=== PATIENT | male | born 1950 | race Caucasian/White ===

== ENCOUNTER → 2016-11-08 | Outpatient (CLI) | payer OTHER ==
[~2016-11-08] MED LIST: ACET-1138 PO; ACET-1256 PO; ASPI81TA28 PO; BACL10TA PO; BUSP1TAB46 PO; CALC500C3 PO; CHOL100010 PO; CLB/200 PO; CRS20 PO; CYCL10TA6 PO; DULO60CA44 PO; GLC/500 PO; HMLIS SQ; IBUP-1050 PO; INSDGI SC; INSDGI SQ; IPRA0.06 NAE; LEVO50TA6 PO; LISI-725 PO; MELA1TAB5 PO; MELA5CAP PO; NAPR250T2 PO; OXYSR/10 PO; PREG150C PO; PREG200C PO; PRLSR20 PO; ROSU40TA PO; RXC5 PO; XRL10 PO
[2016-11-08 11:27] LABS: ALT/SGPT 24 U/L (12-78); BLOOD UREA NITROGEN 15 mg/dl (7-18); BUN/CREATININE RATIO 19.9 (10-20); CALCIUM 8.9 mg/dl (8.5-10.1); CARBON DIOXIDE 27 mmol/L (21-32); CHLORIDE 105 mmol/L (98-107); CHOLESTEROL 138 mg/dl (0-200); CREATININE 0.77 mg/dl (0.60-1.40); GLUCOSE 159 mg/dl (70-99); POTASSIUM 4.6 mmol/L (3.5-5.1); SODIUM 140 mmol/L (136-145)
[2016-11-08 11:30] LABS: ALKALINE PHOSPHATASE 99 U/L (45-117); AST/SGOT 18 U/L (15-37); CHOLESTEROL/HDL RATIO 2.9; HDL CHOLESTEROL 48 mg/dl; LDL CHOLESTEROL CALCULATED 63 mg/dl; TRIGLYCERIDES 133 mg/dl (0-150); VERY LOW DENSITY LIPOPROT CALC 27 mg/dl
[2016-11-08 11:56] LABS: ESTIMATED AVERAGE GLUCOSE 154 mg/dl; HA1C FLAG Normal (Normal)
== END | disposition home or self-care (01) ==
LOC: C.LAB 10:24
PROVIDERS: ATTEND Nurse Practitioner Adult Health
DX: I10 Essential (primary) hypertension (principal); E11.42 Type 2 diabetes mellitus with diabetic polyneuropathy; M48.06 Spinal stenosis, lumbar region; E78.5 Hyperlipidemia, unspecified; E03.9 Hypothyroidism, unspecified; E11.8 Type 2 diabetes mellitus with unspecified complications

== ENCOUNTER → 2016-11-09 | Outpatient (CLI) | payer OTHER ==
[2016-11-09 17:23] LABS: BENZODIAZEPINE, URINE NEG (NEG); COCAINE,URINE NEG (NEG); PHENCYCLIDINE, URINE NEG (NEG)
[2016-11-13 15:38] LABS: COD UR NEGATIVE NG/ML (CUTOFF=50); HYDROCOD UR NEGATIVE NG/ML (CUTOFF=50); HYDROMOR UR NEGATIVE NG/ML (CUTOFF=50); MORPHINE UR 1170 NG/ML (CUTOFF=50); NORHYDROCODONE CONF UR NEGATIVE NG/ML (CUTOFF=50); OXYMORPH UR NEGATIVE NG/ML (CUTOFF=50)
--- NOTE | 2016-11-15 07:43 | CODING QUERY MEDICAL NECESSITY ---
SUPPORTING DIAGNOSIS NEEDED A supporting diagnosis is required for the test/procedure performed on this patient in order for us to be reimbursed by the patient's insurance. Please provide a supporting diagnosis for the following test/procedure listed below next to the test name along with your signature. *If there is no additional diagnosis for this patient that would support the following test/procedure please document that below next to the test/procedure. Test(s)/Procedure(s) that require a supporting diagnosis: * URINE DRUG SCREEN DIAGNOSIS: * DOS: 11/09/16 Provider Signature: Date: Thank you Anabel Cleary Health Information Management Once completed, please kindly fax back to [phone] For questions please call [phone]
== END | disposition home or self-care (01) ==
LOC: C.LAB 15:57
PROVIDERS: ATTEND Family Medicine
DX: Z51.81 Encounter for therapeutic drug level monitoring (principal); Z79.899 Other long term (current) drug therapy

== ENCOUNTER → 2017-03-15 | Outpatient (CLI) | payer OTHER ==
[~2017-03-15] MED LIST changes: +NAPR1TAB48 PO; -NAPR250T2 PO
[2017-03-15 12:23] LABS: ESTIMATED AVERAGE GLUCOSE 177 mg/dl; HA1C FLAG Normal (Normal)
== END | disposition home or self-care (01) ==
LOC: C.LAB 10:55
PROVIDERS: ATTEND Nurse Practitioner Adult Health
DX: E11.49 Type 2 diabetes mellitus with other diabetic neurological complication (principal)

== ENCOUNTER 2017-03-23 08:28 | Observation (INO) | payer OTHER ==
[2017-03-15 12:08] LABS: BASO % 0.5 %; BASO ABS # 0.03 K/uL (0-0.2); COMPLETE YES; EOS % 1.5 %; IG% 0.3 %; LYMPH % 27.2 %; LYMPH ABS # 1.78 K/uL (1.2-3.4); MEAN CELL VOLUME 89.9 fL (80-100); MEAN CORPUSCULAR HEMOGLOBIN 30.8 pg (25-34); MEAN CORPUSCULAR HGB CONC 34.3 g/dl (32-36); MEAN PLATELET VOLUME 12.6 fL (7.4-10.4); MONO % 8.9 %; NEUT % 61.6 %; PLATELET COUNT 171 K/uL (130-400); RED BLOOD COUNT 4.67 M/uL (4.7-6.1); WHITE BLOOD COUNT 6.55 K/uL (4.8-10.8)
[2017-03-15 12:18] LABS: PARTIAL THROMBOPLASTIN RATIO 1.1; PROTHROMBIN TIME (PATIENT) 11.2 SECONDS (9.0-12.0)
[2017-03-15 12:21] LABS: URINE APPEARANCE CLEAR (CLEAR); URINE BILIRUBIN NEG (NEG); URINE COLOR DK YELLOW; URINE NITRITE NEG (NEG); URINE SPECIFIC GRAVITY 1.027 (1.000-1.030); UROBILINOGEN NEG (NEG)
[2017-03-15 12:29] LABS: MANUAL MICROSCOPIC REQUIRED? NO; REVIEW REQ? NO
[2017-03-15 12:37] LABS: BLOOD UREA NITROGEN 13 mg/dl (7-18); BUN/CREATININE RATIO 17.6 (10-20); CARBON DIOXIDE 27 mmol/L (21-32); CHLORIDE 107 mmol/L (98-107); CREATININE 0.75 mg/dl (0.60-1.40); GLUCOSE 109 mg/dl (70-99); SODIUM 143 mmol/L (136-145)
[2017-03-15 12:48] LABS: CALCIUM 8.7 mg/dl (8.5-10.1)
[2017-03-15 14:47] VITALS: BMI 41.0
--- NOTE | 2017-03-22 13:42 | History and Physical ---
History & Physical Date Mar 22, 2017. Chief Complaint Patellar instability right TKA History of Present Illness The patient is a 67 year old male with complaints of Past Medical/Surgical History Medical Problems: (1) Degenerative joint disease (DJD) of hip (2) Depressive Disorder Nec (3) Diab W Oth Spec Manifest, Type Ii Or Unspec Type, Not Uncntr (4) Esophageal Reflux (5) Heart Disease Nos (6) Hyperlipidemia Nec/Nos (7) Hypertension Nos (8) Mitral Valve Disorder (9) Pharyngitis Additional History Hepatic Disease: No Endocrine Disorder: Yes (Type I DM) Hypertension: No Other: Hyperlipidemia, Depression Allergies Coded Allergies: Iodinated Diagnostic Agents (Verified Allergy, Severe, ANAPHYLAXIS, ) Iodine (Verified Allergy, Severe, ANAPHYLAXIS, 03/15/17) HAS EATEN SHELLFISH IN RECENT PAST W/O PROBLEM Home Medications Scheduled Acetaminophen (Tylenol), 1,000 MG PO PRN Aspirin (Aspirin Ec), 81 MG PO QAM Baclofen (Lioresal), 20 MG PO BID Buspirone Hcl (Buspirone Hcl), 7.5 MG PO BID Calcium Carbonate (Tums), 2 TAB PO PRN Cyclobenzaprine Hcl (Flexeril), 10 MG PO TID Insulin Glargine (Lantus), 50 UNITS SC AMPM Insulin Human Lispro (Humalog Kwikpen), UNITS SQ TIDM Levothyroxine Sodium (Levothyroxine Sodium), 1 TAB PO QAM Lisinopril (Zestril), 20 MG PO QAM Melatonin (Kp Melatonin), 1 TAB PO HS Metformin Hcl (Glucophage), 1,000 MG PO BID Omeprazole (Prilosec), 20 MG PO QAM Pregabalin (Lyrica), 150 MG PO TID Rosuvastatin Calcium (Crestor *), 40 MG PO QAM Physical Examination Skin: warm/dry Eyes: normal inspection, EOMI ENT: normal ENT inspection Head: normocephalic Neck: supple, no adenopathy Respiratory/Chest: lungs clear, normal breath sounds Cardiovascular: regular rate, rhythm Abdomen / GI: normal bowel sounds Extremities: normal inspection (Right knee incision well healed, probable defect medial retinaculum) Neurologic/Psych: no motor/sensory deficits Diagnosis Right knee patellar instability, 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
[2017-03-23] VITALS (10 sets, daily range): BP systolic 120–153; BP diastolic 70–85; PULSE 70–87; TEMP 36.7–37.1; O2SAT 92–96; Ht 185.4 cm; Wt 141.8 kg
[~2017-03-23] VITALS: Ht 185.4 cm; Wt 141.8 kg
[~2017-03-23 08:28] MED LIST changes: -ACET-1138 PO; -BACL10TA PO; +BUPIVACAINE 0.25% 30 ML VIAL ONE; +BUPIVACAINE 0.5 % 5 MG/1 ML PF 10ML VIAL ONE; -BUSP1TAB46 PO; -CALC500C3 PO; +CEFAZOLIN 3000 MG/65 ML D5W IV SCH; -CHOL100010 PO; -CLB/200 PO; -DULO60CA44 PO; -GLC/500 PO; -IBUP-1050 PO; -INSDGI SQ; -IPRA0.06 NAE; +LACTATED RINGER'S 1000ML 1,000 ML IV SCH; -LEVO50TA6 PO; -LISI-725 PO; -MELA5CAP PO; -NAPR1TAB48 PO; -OXYSR/10 PO; -PREG200C PO; -PRLSR20 PO; -ROSU40TA PO; -RXC5 PO; -XRL10 PO
--- NOTE | 2017-03-23 09:46 | History & Physical Bridge Note ---
H&P Re-Evaluation Bridge Note: I have examined the patient, reviewed the History & Physical and in the interval since the performance of the History & Physical I have noted the following changes of clinical significance: No changes noted
[2017-03-23] MEDS ORDERED: LIDOCAINE HCL 2% 2 ML VIAL (20MG/ML) ONE (09:57)
[2017-03-23] MEDS ORDERED: PROPOFOL IV EMULSION 10 MG/ML 20 ML VIAL IV ONE (09:57)
[2017-03-23] MEDS ORDERED: FENTANYL CITRATE INJ 50 MCG/1 ML 2 ML VIAL ONE (09:58)
[2017-03-23] MEDS ORDERED: MIDAZOLAM HCL 1 MG/ML 2ML VIAL ONE ×3 (09:58→12:07)
[2017-03-23] MEDS ORDERED: BACITRACIN 50000 UNIT VIAL ONE (11:08)
[2017-03-23] MEDS ORDERED: POVIDONE-IODINE OP SOLN 30 ML BTL ONE (11:44)
[2017-03-23] MEDS ORDERED: KETAMINE HCL INJ 50 MG/ML 10 ML VIAL ONE (11:54)
[2017-03-23] MEDS ORDERED: HYDROmorphone INJ 2 MG/ML SYR/VIAL IV PRN (12:00)
[2017-03-23] MEDS ORDERED: ONDANSETRON INJ 2 MG/ML 2 ML VIAL IV PRN ×2 (12:00→13:00)
[2017-03-23] MEDS ORDERED: ATROPINE SULFATE 0.1 MG/ML 5ML SYR IV PRN (12:00)
[2017-03-23] MEDS ORDERED: KETOROLAC TROMETHAMINE 30 MG/ML VIAL IV. PRN (12:00)
[2017-03-23] MEDS ORDERED: PHENYLEPHRINE 100MCG/ML 5ML SYR IV PRN (12:00)
[2017-03-23] MEDS ORDERED: EpHEDrine SULFATE INJ 50 MG/ML AMP IV PRN (12:00)
--- NOTE | 2017-03-23 12:40 | [facility] Operative Report ---
Operative Report Operative Date Mar 23, 2017. Pre-Operative Diagnosis Recurrent Instability, Patella Post-Operative Diagnosis same Procedure(s) Performed Patient's right knee was prepped and draped in the usual sterile manner. Limb was exsanguinated with an Esmarch bandage and the drug was inflated to 300 mmHg. There is minimal incision was reopened some tenderness or shortness of carcinoma status. The medial retinaculum was not ruptured but was patulous and this rendered the patella unstable. On passive flexion the patella tracked normally. The medial retinaculum was reopened And taken to ensure a good tendinous edge on both sides incision. All components were intact. The patella was intact. A lateral release carried out using electrocautery. The knee was thoroughly irrigated and the passive pants over vest fashion the VMO was advanced to tighten the medial retinaculum. The wound was again irrigated and closed using 0 Dexon and a sip strip sterile dressing of Adaptic 44's Stoler roll the lengthenings with medial and lateral plaster slabs applied. The patient told procedure well. Mr. Walton was essential throughout components of the case including positioning prepping draping program support assistant wound closure and dressings application. Surgeon Dr. Rubens Macias Web Publisher Surgeon(s) Gilmer Walton PA-C Estimated Blood Loss 10ml Findings Medial retinacular laxity Specimens None per surgeon I attest to the content of the Intraoperative Record and any orders documented therein. Any exceptions are noted below.
--- NOTE | 2017-03-23 12:42 | [facility] Operative Report ---
Operative Report Operative Date Mar 23, 2017. Pre-Operative Diagnosis Recurrent Instability, Patella Post-Operative Diagnosis same Surgeon Dr. Rubens Macias Engineer Soils Surgeon(s) Gilmer Walton PA-C Estimated Blood Loss 10ml Findings medial retinacular laxity Specimens None per surgeon I attest to the content of the Intraoperative Record and any orders documented therein. Any exceptions are noted below.
[2017-03-23] MEDS ORDERED: PHARMACY GLYCEMIC MGMT CONSULT PRN (12:59)
[2017-03-23] MEDS ORDERED: MoRPHine SULFATE 2 MG/ML CARP IV PRN (13:00)
[2017-03-23] MEDS ORDERED: MAGNESIUM HYDROXIDE SUSP 30 ML UDC PO PRN (13:00)
[2017-03-23] MEDS ORDERED: OXYCODONE HCL IR 5 MG TAB (IMMEDIATE RELEASE) PO PRN (13:00)
[2017-03-23] MEDS ORDERED: ALUMINUM/MAGNESIUM/SIMETH (MAALOX MAX) 30 ML UDC PO PRN (13:00)
[2017-03-23] MEDS ORDERED: METOCLOPRAMIDE HCL INJ 5 MG/ML 2 ML VIAL IV PRN (13:00)
[2017-03-23] MEDS ORDERED: ZOLPIDEM TARTRATE 5 MG TAB PO PRN (13:00)
[2017-03-23] MEDS ORDERED: BISACODYL 10 MG SUPP PR PRN (13:00)
--- NOTE | 2017-03-23 13:44 | Anesthesiology Progress Note ---
Anesthesia Post Op Note Date & Time Mar 23, 2017 at 13:43 Vital Signs Pain Intensity: 0 Vital Signs Past 12 Hours Date Time Temp Pulse Resp B/P (MAP) Pulse Ox O2 Delivery O2 Flow Rate FiO2 03/23/17 13:35 37.2 73 16 134/72 98 Nasal Cannula 2 03/23/17 13:25 70 13 136/82 100 Nasal Cannula 2 03/23/17 13:15 71 14 134/76 100 Nasal Cannula 2 03/23/17 13:05 71 14 137/73 100 Nasal Cannula 2 03/23/17 12:55 36.0 75 16 132/74 95 Nasal Cannula 2 03/23/17 09:21 36.9 74 20 132/76 93 Room Air Notes Mental Status: alert / awake / arousable, participated in evaluation Pt Amnestic to Procedure: Yes Nausea / Vomiting: adequately controlled Pain: adequately controlled Airway Patency, RR, SpO2: stable & adequate BP & HR: stable & adequate Hydration State: stable & adequate Neuraxial Anesthesia: was administered, sensory block is resolving Anesthetic Complications: no major complications apparent
[2017-03-23] MEDS ORDERED: MoRPHine SULFATE 10 MG/ML CARP/VIAL IV PRN (13:45)
[2017-03-23] MEDS ORDERED: MoRPHine SULFATE 4 MG/ML 1 ML CARP\\VIAL IV PRN (13:45)
--- NOTE | 2017-03-23 13:59 | Pharmacy Progress Note ---
Glycemic Control Intl Consult Date of Service Mar 23, 2017. Scope Glycemic Pharmacist consulted by Yahir Walton on 03/23/17 for glycemic control and to write orders per [facility] inpatient glycemic control protocol Objective Weight (Kilograms): 141.82 Accuchecks BSG (last 24hrs): Test 03/23/17 08:42 03/23/17 13:10 Bedside Glucose 148 mg/dl (70-99) 121 mg/dl (70-99) Recent Pertinent Medications Outpatient Anti-diabetic Regimen: * Lantus 50 units AMPM, Humalog 90-125 units/day per SS, Metformin 1gm BIDM * A1c = 7.8 % from 03/15/17 Risk Factors for Insulin Resistance: * Infection: Ancef periop prophylaxis * IVF:NS + KCl 10 mEq at 100 ml/hr * Recent Surgery: POD0, R TKA * Diet: DM1, will change to DM2 Assessment & Plan ASSESSMENT: * ADA & AACE recommend a goal blood sugar range 140-180 mg/dl for the majority of critically ill & non-critically ill patients. However, more stringent targets may be selected in individual cases. * 67 yo male admitted s/p R TKA done today by Dr. Macias. * Most recent A1c from last week indicates marginal control of BSGs as an outpatient, however, definitely room for improvement. * Pt receives significant doses of Lantus and Humalog as an outpatient with TDD ranging from 190 - 225 units per day. Pt also takes Metformin which will be placed on hold initially; consider resuming Metformin in 1-2 days prior to discharge. * Due to changing po intake among other differences in the acute setting will decrease basal dose by 30% initially then titrate based off BSGs thereafter. * Will consider both weight based dosing and home dosing to determine Novolog parameters. Add an overnight check to help estimate pt's insulin needs and correct potential hyperglycemia, particularly if Lantus is underdosed. * Goal is to maintain tight control of BSGs post-operatively, especially during the first 24- 48 hours. Maintaining BSGs < 180 mg/dl during this time has been shown to improve healing time and decrease risk of infection. PLAN FOR INPATIENT GLYCEMIC CONTROL: * Set Lantus to 35 units SQ BID * Novolog ACHS + 02 * Set correction factor to 12 mg/dl/unit * Set carb ratio to 1 unit per 4 grams CHO consumed * Set goal range to Low 110 mg/dL - High 150 mg/dL * Hold metformin * Please note that the plan above was derived based on current level of insulin resistance and hospital stress. These recommendations are appropriate for inpatient admission only. Plan of care upon discharge will need to be reassessed to avoid potential outpatient hypo/hyperglycemia. Thank you.
[2017-03-23] MEDS ORDERED: IV FLUIDS COMPLETED PRN (14:00)
[2017-03-23] MEDS ORDERED: GLUCOSE 40% GEL 15 GM TUBE PO PRN (15:15)
[2017-03-23] MEDS ORDERED: DEXTROSE 50% 50 ML SYR IV PRN (15:15)
[2017-03-23] MEDS ORDERED: GLUCOSE 10 TABS/TUBE PO PRN (15:15)
[2017-03-23] MEDS ORDERED: GLUCAGON FOR INJ 1 MG VIAL SQ PRN (15:15)
[2017-03-23] MEDS: POTASSIUM CHLORIDE INJ 10 MEQ in SODIUM CHLORIDE 0.9% 1000ML 1,000 ML IV SCH (15:47)
[2017-03-23] MEDS: ACETAMINOPHEN 500 MG TAB PO SCH ×2 (15:48→22:28)
[2017-03-23] MEDS: KETOROLAC TROMETHAMINE 15 MG/ML VIAL IV. SCH ×2 (15:50→22:28)
[2017-03-23] MEDS: FERROUS GLUCONATE 324 MG TAB PO SCH (17:47)
[2017-03-23] MEDS: INSULIN ASPART 100 UNITS/ML 3 ML PEN SC SCH ×2 (17:52→21:11)
[2017-03-23] MEDS: CEFAZOLIN IV 3,000 MG in DEXTROSE 5% 50ML 50 ML IV SCH (21:07)
[2017-03-23] MEDS: INSULIN GLARGINE SOLOSTAR 100 UNITS/ML 3 ML PEN SC SCH (21:10)
[2017-03-24] MEDS: POTASSIUM CHLORIDE INJ 10 MEQ in SODIUM CHLORIDE 0.9% 1000ML 1,000 ML IV SCH (01:37)
[2017-03-24] MEDS ORDERED: INSULIN ASPART 100 UNITS/ML 3 ML PEN SC ONE (02:00)
[2017-03-24 03:32] VITALS: BP 137/68; PULSE 81; TEMP 36.4; O2SAT 95
[2017-03-24] MEDS: KETOROLAC TROMETHAMINE 15 MG/ML VIAL IV. SCH ×2 (04:13→10:57)
[2017-03-24] MEDS: CEFAZOLIN IV 3,000 MG in DEXTROSE 5% 50ML 50 ML IV SCH (04:13)
[2017-03-24 05:59] LABS: HEMATOCRIT 37.5 % (42-52); MEAN CELL VOLUME 89.5 fL (80-100); MEAN CORPUSCULAR HEMOGLOBIN 30.5 pg (25-34); MEAN CORPUSCULAR HGB CONC 34.1 g/dl (32-36); MEAN PLATELET VOLUME 12.1 fL (7.4-10.4); PLATELET COUNT 157 K/uL (130-400); RED BLOOD COUNT 4.19 M/uL (4.7-6.1); WHITE BLOOD COUNT 10.72 K/uL (4.8-10.8)
[2017-03-24 06:30] LABS: BUN/CREATININE RATIO 19.3 (10-20); CALCIUM 8.7 mg/dl (8.5-10.1); CREATININE 1.1 mg/dl (0.60-1.40)
[2017-03-24 07:05] VITALS: BP 155/76; PULSE 79; TEMP 37; O2SAT 96
--- NOTE | 2017-03-24 07:53 | Orthopedic Progress Note ---
Orthopedic Progress Note Date of Service Mar 24, 2017. Subjective Post OP Day: 1 Reports: feeling well Objective N/V intact, splint C/D/I Date Time Temp Pulse Resp B/P (MAP) Pulse Ox O2 Delivery O2 Flow Rate FiO2 03/24/17 07:05 37.0 79 16 155/76 (102) 96 Room Air 03/24/17 03:32 36.4 81 16 137/68 (91) 95 Room Air 03/23/17 22:49 37.0 87 16 138/72 (94) 93 Room Air 03/23/17 19:30 37.1 87 16 153/85 (107) 94 Room Air 03/23/17 19:26 96 Room Air 03/23/17 17:29 36.9 78 16 138/78 (98) 95 2.0 03/23/17 16:40 36.7 80 17 131/73 (92) 95 Nasal Cannula 2.0 03/23/17 15:32 37.1 72 17 120/75 (90) 95 Nasal Cannula 3.0 03/23/17 15:20 94 Nasal Cannula 2.0 03/23/17 15:06 37.0 70 16 120/73 (89) 92 Nasal Cannula 2.0 03/23/17 14:40 96 Nasal Cannula 2.0 03/23/17 14:40 37.0 78 15 131/70 (90) 96 Nasal Cannula 2.0 03/23/17 14:15 74 12 128/83 96 Nasal Cannula 2 03/23/17 14:00 75 20 132/77 97 Nasal Cannula 2 03/23/17 13:45 74 15 123/74 97 Nasal Cannula 2 03/23/17 13:35 37.2 73 16 134/72 98 Nasal Cannula 2 03/23/17 13:25 70 13 136/82 100 Nasal Cannula 2 03/23/17 13:15 71 14 134/76 100 Nasal Cannula 2 03/23/17 13:05 71 14 137/73 100 Nasal Cannula 2 03/23/17 12:55 36.0 75 16 132/74 95 Nasal Cannula 2 03/23/17 09:21 36.9 74 20 132/76 93 Room Air Laboratory Results 24 Hours: Test 03/24/17 05:41 Hematocrit 37.5 % Hemoglobin 12.8 g/dL Assessment & Plan Assessment: 67 yo male stable POD #1 s/p right TKA medial retinacular repair Plan: 1. Med management 2. DVT prophylaxis- ASA, SCDs 3. PT/OT 4. D/C planning- home
[2017-03-24] MEDS ORDERED: RXC5 PO (07:57)
[2017-03-24] MEDS ORDERED: ASPI81TA28 PO (07:57)
--- NOTE | 2017-03-24 08:00 | Discharge Instructions ---
Discharge Instructions Date of Service Mar 24, 2017. Admission Reason for Admission: Presence Of Right Artifical Knee Joint Discharge Discharge Diagnosis / Problem: Right knee patellar instability Discharge Goals Goal(s): Decrease discomfort, Improve function Activity Recommendations Activity Limitations: as noted below Weightbearing Status: Right weightbearing (as tolerated) . Instructions / Follow-Up Instructions / Follow-Up Maintain splint until follow-up with MD. Frequent ice and elevation. Move ankle/foot frequently. Weightbearing as tolerated Current Hospital Diet Patient's current hospital diet: Diabetes Type 2 Diet Discharge Diet Recommended Diet: Diabetes Type 2 Diet Procedures Procedures Performed: Right Knee Medial Retinacular Repair, Lateral Release, DMO Advancement Pending Studies Studies pending at discharge: no Laboratory Results Hemoglobin A1c Test 03/15/17 11:13 Range/Units Estimated Average Glucose 177 mg/dl Hemoglobin A1c 7.8 H 4.5-5.6 % Medical Emergencies . Who to Call and When: Medical Emergencies: If at any time you feel your situation is an emergency, please call 911 immediately. . Non-Emergent Contact Non-Emergency issues call your: Surgeon Call Non-Emergent contact if: temperature is above 101.5, your pain is not controlled, wound has increased drainage, wound has increased redness . "Provider Documentation" section prepared by Gilmer Walton PA-C. . VTE Core Measure Inpt VTE Proph given/why not?: Other Anticoagulation (ASA 81mg bid), T.E.D. Stockings, SCD's [place] Drug Monitoring Program Search Results: patient reviewed within database, no issues identified
[2017-03-24 08:08] VITALS: BP 155/76; PULSE 79; TEMP 37; O2SAT 96
[2017-03-24] MEDS ORDERED: PANTOprazole SOD 40 MG TAB PO SCH (09:00)
[2017-03-24] MEDS ORDERED: ASPIRIN 325 MG ECTAB PO SCH (09:00)
[2017-03-24] MEDS ORDERED: MULTIVITAMIN TAB PO SCH (09:00)
[2017-03-24] MEDS: FERROUS GLUCONATE 324 MG TAB PO SCH (09:14)
[2017-03-24] MEDS: ACETAMINOPHEN 500 MG TAB PO SCH (09:14)
[2017-03-24] MEDS: INSULIN ASPART 100 UNITS/ML 3 ML PEN SC SCH (09:18)
[2017-03-24] MEDS: INSULIN GLARGINE SOLOSTAR 100 UNITS/ML 3 ML PEN SC SCH (09:19)
[2017-03-24 10:51] VITALS: BP 153/74
[2017-03-24 11:31] VITALS: BP 174/80; PULSE 84; O2SAT 97
--- NOTE | 2017-04-05 08:54 | Discharge Summary ---
Orthopedic Discharge Summary Admission Date/Reason Mar 23, 2017 at 09:43 Presence Of Right Artifical Knee Joint. Discharge Date/Disposition Mar 24, 2017 Home Diagnosis Principal Diagnosis: Right total knee patellar instability Procedure(s) Performed Right total knee medial retinacular repair Medication Reconciliation New Medications: Oxycodone HCl (Oxycodone HCl) 5 Mg Tab 5-10 MG PO Q4-6 PRN for Pain, #60 TAB Changed Medications: Aspirin (Aspirin Ec) 81 Mg Tab 81 MG PO BID for 30 Days (Changed from: QAM) Change to twice daily Continued Medications: Acetaminophen (Tylenol) 500 Mg Tab 1000 MG PO PRN, TAB Baclofen (Lioresal) 10 Mg Tab 20 MG PO BID, TAB Buspirone Hcl (Buspirone Hcl) 7.5 Mg Tab 7.5 MG PO BID Calcium Carbonate (Tums) 500 Mg Chew 2 TAB PO PRN Cyclobenzaprine Hcl (Flexeril) 10 Mg Tab 10 MG PO TID, TAB Insulin Glargine (Lantus) Vial 50 UNITS SC AMPM, VIAL Insulin Human Lispro (Humalog Kwikpen) 100 Units/Ml Inj UNITS SQ TIDM TID PER SLIDING SCALE PER PT. RANGE 90-125 UNITS PER DAY Levothyroxine Sodium (Levothyroxine Sodium) 50 Mcg Tab 1 TAB PO QAM for 90 Days, #90 TAB 3 Refills Lisinopril (Zestril) 20 Mg Tab 20 MG PO QAM, 0 Refills Melatonin (Kp Melatonin) 3 Mg Tab 1 TAB PO HS for 30 Days, #30 TAB Metformin Hcl (Glucophage) 500 Mg Tab 1000 MG PO BID, TAB Omeprazole (Prilosec) 20 Mg Capcr 20 MG PO QAM Pregabalin (Lyrica) 150 Mg Cap 150 MG PO TID, CAP Rosuvastatin Calcium (Crestor *) 40 Mg Tab 40 MG PO QAM Admission Physical Exam As per Admitting History & Physical. Hospital Course Pt underwent right TKA medial retinacular repair without complication. He tolerated procedure well and was discharged to recovery room. post-operative pain well controlled. He was started on Aspirin for DVT prophylaxis. He also used SCD's for additional prophylaxis. His splint/dressing will remain in place until follow-up appt with MD. He was discharged home on POD #1 and will follow-up with MD in 10-14 days Discharge Instructions Please refer to the electronic Patient Visit Report (Discharge Instructions) for additional information.
[2017-06-01] MEDS ORDERED: LISI-725 PO (07:27)
[2017-06-01] MEDS ORDERED: PRLSR20 PO (07:53)
[2017-06-01] MEDS ORDERED: GLC/500 PO (10:02)
[2017-06-01] MEDS ORDERED: BACL10TA PO (11:02)
[2017-06-01] MEDS ORDERED: LEVO50TA6 PO (11:04)
[2017-06-01] MEDS ORDERED: BUSP1TAB46 PO (11:36)
[2017-06-01] MEDS ORDERED: CALC500C3 PO (15:14)
== END 2017-03-24 11:35 | disposition home or self-care (01) ==
LOC: C.ACU 08:28 → C.3E 09:43 → INTOOBSV 09:43 → ENRESERV 14:15 → CANBEDREQ 14:54
DX: T84.022A Instability of internal right knee prosthesis, initial encounter (principal); Y83.1 Surgical operation with implant of artificial internal device as the cause of abnormal reaction of the patient, or of later complication, without mention of misadventure at the time of the procedure; I10 Essential (primary) hypertension; E11.9 Type 2 diabetes mellitus without complications; M16.10 Unilateral primary osteoarthritis, unspecified hip; F32.9 Major depressive disorder, single episode, unspecified; E66.01 Morbid (severe) obesity due to excess calories; Z68.41 Body mass index [BMI] 40.0-44.9, adult; K21.9 Gastro-esophageal reflux disease without esophagitis; Z79.4 Long term (current) use of insulin; Z79.82 Long term (current) use of aspirin

== ENCOUNTER 2017-06-01 16:14 | Observation (INO) | payer OTHER ==
[~2017-06-01] VITALS: Ht 185.4 cm; Wt 145.8 kg
[~2017-06-01 16:14] MED LIST changes: +BACL10TA PO; -BUPIVACAINE 0.25% 30 ML VIAL ONE; -BUPIVACAINE 0.5 % 5 MG/1 ML PF 10ML VIAL ONE; +BUSP1TAB46 PO; +CALC500C3 PO; -CEFAZOLIN 3000 MG/65 ML D5W IV SCH; +GLC/500 PO; -LACTATED RINGER'S 1000ML 1,000 ML IV SCH; +LEVO50TA6 PO; +LISI-725 PO; +PRLSR20 PO; +RXC5 PO
[2017-06-01] MEDS ORDERED: SODIUM CHLORIDE 0.9% 1000ML 1,000 ML IV SCH (16:23)
[2017-06-01 16:43] LABS: BASO % 0.5 %; BASO ABS # 0.03 K/uL (0-0.2); COMPLETE YES; EOS % 2.7 %; HEMATOCRIT 41.3 % (42-52); IG% 0.2 %; LYMPH % 33.2 %; MEAN CORPUSCULAR HEMOGLOBIN 29.7 pg (25-34); MEAN CORPUSCULAR HGB CONC 33.4 g/dl (32-36); MEAN PLATELET VOLUME 12.4 fL (7.4-10.4); MONO % 9.3 %; NEUT % 54.1 %; PLATELET COUNT 148 K/uL (130-400); RED BLOOD COUNT 4.64 M/uL (4.7-6.1); WHITE BLOOD COUNT 6.33 K/uL (4.8-10.8)
[2017-06-01 16:59] LABS: BLOOD UREA NITROGEN 20 mg/dl (7-18); CALCIUM 9.2 mg/dl (8.5-10.1); CARBON DIOXIDE 27 mmol/L (21-32); CHLORIDE 108 mmol/L (98-107); CREATININE 0.83 mg/dl (0.60-1.40); GLUCOSE 124 mg/dl (70-99); POTASSIUM 4.1 mmol/L (3.5-5.1); SODIUM 141 mmol/L (136-145)
[2017-06-01 17:02] LABS: PARTIAL THROMBOPLASTIN RATIO 1.1; PROTHROMBIN TIME (PATIENT) 10.9 SECONDS (9.0-12.0)
[2017-06-01 17:04] LABS: CKMB/CK RATIO 0.7 (0-3.0)
--- NOTE | 2017-06-01 17:17 | DIAGNOSTIC IMAGING REPORT ---
CT OF THE HEAD WITHOUT CONTRAST CLINICAL HISTORY: Stroke symptoms. Left leg weakness. Fall. COMPARISON STUDY: Head CT February 05, 2014. CT DOSE: 823.94 mGycm TECHNIQUE: Helical axial images of the head were obtained without IV contrast. Automated exposure control was utilized for the study. A dose lowering technique was utilized adhering to the principles of ALARA. FINDINGS: No acute intracranial hemorrhage, midline shift or mass effect is present. Ventricular system is stable. Basilar cisterns are patent. There are no extra-axial collections. Arzola-white differentiation is maintained. There are no findings to suggest acute dural sinus thrombosis or acute territorial infarct. There is no calvarial fracture. Probable left maxillary sinus mucous retention cyst is partially imaged. IMPRESSION: No acute intracranial findings. Electronically signed by: Boris Ford M.D. 06/01/2017 5:15 PM Dictated Date/Time: 06/01/2017 5:08 PM
--- NOTE | 2017-06-01 17:20 | DIAGNOSTIC IMAGING REPORT ---
CHEST ONE VIEW PORTABLE CLINICAL HISTORY: Stroke symptoms. COMPARISON STUDY: Chest radiograph November 25, 2015. FINDINGS: Lung volumes are normal. No pneumothorax or pleural effusion is present. There is no evidence of pulmonary edema. Cardiomediastinal silhouette is stable. IMPRESSION: No acute cardiopulmonary findings. Electronically signed by: Boris Ford M.D. 06/01/2017 5:19 PM Dictated Date/Time: 06/01/2017 5:17 PM
[2017-06-01] MEDS ORDERED: NAPR250T2 PO (17:46)
[2017-06-01] MEDS ORDERED: MELA5CAP PO (17:46)
[2017-06-01] MEDS ORDERED: IBUP-1050 PO (17:46)
[2017-06-01] MEDS ORDERED: CYCL10TA6 PO (17:46)
[2017-06-01] MEDS ORDERED: INSDGI SQ (17:46)
[2017-06-01] MEDS ORDERED: ROSU40TA PO (17:46)
[2017-06-01] MEDS ORDERED: ASPI81TA28 PO (17:46)
[2017-06-01] MEDS ORDERED: PREG200C PO (17:46)
[2017-06-01] MEDS ORDERED: ASPIRIN 81 MG CHEW PO STA (18:45)
--- NOTE | 2017-06-01 19:42 | History and Physical ---
History & Physical Date & Time of Service: Jun 01, 2017 at 19:42 Chief Complaint: Fall/ Head Pain Primary Care Physician: Adi Osborne III, CRNP History of Present Illness Source: patient, hospital records The patient is a 67-year-old male who presents to the emergency department by EMS after reporting that his left leg gave way as he was stepping onto a bus earlier this evening. The bus cleaner called EMS and police escorted the patient to the hospital. The patient denies any neurologic symptoms as far as lightheadedness, dizziness, headache, confusion, memory loss, numbness or tingling in arms or legs, low back pain.. He reports that his left leg just gave way. He did undergo patellar repair surgery in February after a fall. Past Medical/Surgical History Medical Problems: (1) Depressive Disorder Nec Status: Chronic (2) Diab W Oth Spec Manifest, Type Ii Or Unspec Type, Not Uncntr Status: Chronic (3) Esophageal Reflux Status: Chronic (4) Heart Disease Nos Status: Chronic (5) Hyperlipidemia Nec/Nos Status: Chronic (6) Hypertension Nos Status: Chronic (7) Mitral Valve Disorder Status: Chronic Family History Patient reports no known family medical history. Social History Smoking Status: Former Smoker Drug Use: none Marital Status: single Housing status: lives alone Occupational Status: employed, retired Immunizations History of Influenza Vaccine: N/A History of Tetanus Vaccine?: Yes Tetanus Immunization Date: Apr 13, 1995 History of Pneumococcal: No History of Hepatitis B Vaccine: No Multi-Drug Resistant Organisms History of MDRO: No Allergies Coded Allergies: Iodinated Diagnostic Agents (Verified Allergy, Severe, ANAPHYLAXIS, ) Iodine (Verified Allergy, Severe, ANAPHYLAXIS, 03/23/17) HAS EATEN SHELLFISH IN RECENT PAST W/O PROBLEM Home Medications Scheduled Aspirin (Aspirin Ec), 81 MG PO DAILY Baclofen (Lioresal), 20 MG PO BID Buspirone Hcl (Buspirone Hcl), 7.5 MG PO BID Calcium Carbonate (Tums), 2 TAB PO PRN Cyclobenzaprine Hcl (Flexeril), 10 MG PO BID Insulin Glargine (Lantus), 46 UNITS SQ AMPM Insulin Human Lispro (Humalog Kwikpen), UNITS SQ TIDM Levothyroxine Sodium (Levothyroxine Sodium), 1 TAB PO QAM Lisinopril (Zestril), 20 MG PO QAM Melatonin (Melatonin), 5 MG PO HS Metformin Hcl (Glucophage), 1,000 MG PO BID Naproxen (Naprosyn), 1 TAB PO Q12 Omeprazole (Prilosec), 20 MG PO QAM Pregabalin (Lyrica), 200 MG PO TID Rosuvastatin Calcium (Crestor), 40 MG PO DAILY Scheduled PRN Ibuprofen (Advil), 400 MG PO Q6 PRN for Headache or Pain Review of Systems The patient denies chest pain, palpitations, shortness of breath, cough, lower extremity swelling, vision change, hearing change, sore throat, fevers, chills, sweats, weight change, fatigue, nausea, vomiting, diarrhea or constipation, abdominal pain, pelvic pain, blood in urine or stool, dysuria, urinary frequency or urgency, lightheadedness, dizziness, headache, memory loss, rash, abnormal bruising or bleeding, persistent focal weakness, numbness or tingling in arms or legs, generalized arthralgias or myalgias, back or neck pain, night sweats, or allergy symptoms. The review of systems is otherwise negative other than for that already noted above, and at least 10 systems have been reviewed. Physical Exam Vital Signs Date Time Temp Pulse Resp B/P (MAP) Pulse Ox O2 Delivery O2 Flow Rate FiO2 06/01/17 18:51 76 156/80 97 Room Air 06/01/17 17:23 72 20 121/77 98 Room Air 06/01/17 16:37 95 Room Air 06/01/17 16:21 36.7 87 20 151/88 95 Room Air The patient is awake, well-developed and adequately nourished, alert and oriented 3, normocephalic and atraumatic, lying in bed and in no acute distress. HEENT--PERRL, EOMI, mucous membranes and oropharynx normal. Chronic slight facial asymmetry persistent with less facial tone on left, Neck--supple, no JVD or bruits, thyroid normal, trachea midline, no adenopathy. Heart--normal S1 and S2, no extra beats, no murmurs, rubs or gallops. Lungs--clear bilaterally with good air movement, no respiratory distress, no accessory muscle use. Abdomen--normal bowel sounds and soft, nontender and nondistended, no hernias or masses, no organomegaly and morbidly obese. Extremities--no cyanosis, clubbing or edema. There are good distal pulses b/l. Dermatologic--normal skin turgor, normal color, warm and dry, no abnormal lymph nodes, no rash. Neurologic--cranial nerves II through XII grossly intact, motor and sensory examination normal. Rheumatologic--normal range of motion, nontender, muscles and joints. Psychiatric--normal affect. Diagnostics Laboratory Results Results Past 24 Hours Test 06/01/17 16:29 06/01/17 16:31 Range/Units Bedside Glucose 127 70-99 mg/dl White Blood Count 6.33 4.8-10.8 K/uL Red Blood Count 4.64 4.7-6.1 M/uL Hemoglobin 13.8 14.0-18.0 g/dL Hematocrit 41.3 42-52 % Mean Corpuscular Volume 89.0 80-100 fL Mean Corpuscular Hemoglobin 29.7 25-34 pg Mean Corpuscular Hemoglobin Concent 33.4 32-36 g/dl Platelet Count 148 130-400 K/uL Mean Platelet Volume 12.4 7.4-10.4 fL Neutrophils (%) (Auto) 54.1 % Lymphocytes (%) (Auto) 33.2 % Monocytes (%) (Auto) 9.3 % Eosinophils (%) (Auto) 2.7 % Basophils (%) (Auto) 0.5 % Neutrophils # (Auto) 3.43 1.4-6.5 K/uL Lymphocytes # (Auto) 2.10 1.2-3.4 K/uL Monocytes # (Auto) 0.59 0.11-0.59 K/uL Eosinophils # (Auto) 0.17 0-0.5 K/uL Basophils # (Auto) 0.03 0-0.2 K/uL RDW Standard Deviation 42.4 36.4-46.3 fL RDW Coefficient of Variation 13.0 11.5-14.5 % Immature Granulocyte % (Auto) 0.2 % Immature Granulocyte # (Auto) 0.01 0.00-0.02 K/uL Prothrombin Time 10.9 9.0-12.0 SECONDS Prothromb Time International Ratio 1.0 0.9-1.1 Activated Partial Thromboplast Time 27.3 21.0-31.0 SECONDS Partial Thromboplastin Ratio 1.1 Sodium Level 141 136-145 mmol/L Potassium Level 4.1 3.5-5.1 mmol/L Chloride Level 108 98-107 mmol/L Carbon Dioxide Level 27 21-32 mmol/L Anion Gap 6.0 3-11 mmol/L Blood Urea Nitrogen 20 7-18 mg/dl Creatinine 0.83 0.60-1.40 mg/dl Est Creatinine Clear Calc Drug Dose 135.1 ml/min Estimated GFR () 107.0 Estimated GFR (Non- 92.3 BUN/Creatinine Ratio 24.0 10-20 Random Glucose 124 70-99 mg/dl Calcium Level 9.2 8.5-10.1 mg/dl Total Creatine Kinase 839 39-308 U/L Creatine Kinase MB 5.7 0.5-3.6 ng/ml Creatine Kinase MB Ratio 0.7 0-3.0 Troponin I < 0.015 0-0.045 ng/ml Diagnostic Radiology Patient Name: BLANCA PONCE Unit Number: [id number] Dictated: 06/01/171707 Transcribed: 06/01/171707 Printed Date/Time: [~ rep prt dt]/[~ rep prt tm] [~ rep ct labl] - [~ rep ct ivnm] [facility] [place] [address] Dictated: 06/01/171707 Transcribed: 06/01/171707 Printed Date/Time: [~ rep prt dt]/[~ rep prt tm] [~ rep ct labl] - [~ rep ct ivnm] [~ rep ct add3]] CT OF THE HEAD WITHOUT CONTRAST CLINICAL HISTORY: Stroke symptoms. Left leg weakness. Fall. COMPARISON STUDY: Head CT February 05, 2014. CT DOSE: 823.94 mGycm TECHNIQUE: Helical axial images of the head were obtained without IV contrast. Automated exposure control was utilized for the study. A dose lowering technique was utilized adhering to the principles of ALARA. FINDINGS: No acute intracranial hemorrhage, midline shift or mass effect is present. Ventricular system is stable. Basilar cisterns are patent. There are no extra-axial collections. Arzola-white differentiation is maintained. There are no findings to suggest acute dural sinus thrombosis or acute territorial infarct. There is no calvarial fracture. Probable left maxillary sinus mucous retention cyst is partially imaged. IMPRESSION: No acute intracranial findings. Electronically signed by: Boris Ford M.D. 06/01/2017 5:15 PM Dictated Date/Time: 06/01/2017 5:08 PM The status of this report is Signed. Draft = Not yet reviewed or approved by Radiologist. Signed = Reviewed and approved by Radiologist. <AttendingPhy></AttendingPhy> <FamilyPhy>Adi Osborne III, CRNP</FamilyPhy> < PrimaryPhy>Adi Osborne III, CRNP</PrimaryPhy> <UnitNumber>[id number]</ UnitNumber> <VisitNumber>[id number]</VisitNumber> <PatientName>BLANCA PONCE </PatientName> <DateOfBirth>1950</DateOfBirth> <Location>C.EDB</Location> <ServiceDate>06/01/17</ServiceDate> <MNE>ESINDI</MNE> <OrderingPhy>Evelio Quezada DO</OrderingPhy> <OrderingPhyMNE>f rep ord dr chauhan</OrderingPhyMNE> < DictatingPhyMNE>f rep dict dr chauhan</DictatingPhyMNE> <CCListMNE>f rep ct gissel</ CCListMNE> <AdmittingPhyMNE>f pt admit dr chauhan</AdmittingPhyMNE> <AttendingPhyMNE >f pt attend dr chauhan</AttendingPhyMNE> <ConsultingPhyMNE>f pt consult dr chauhan</ConsultingPhyMNE> <FamilyPhyMNE>f pt fam dr chauhan</FamilyPhyMNE> <OtherPhyMNE>f pt other dr chauhan</OtherPhyMNE> < PrimaryPhyMNE>f pt prim care dr chauhan</PrimaryPhyMNE> <ReferringPhyMNE>f pt referring dr chauhan</ReferringPhyMNE> [~ rep ct add3]] CHEST ONE VIEW PORTABLE CLINICAL HISTORY: Stroke symptoms. COMPARISON STUDY: Chest radiograph November 25, 2015. FINDINGS: Lung volumes are normal. No pneumothorax or pleural effusion is present. There is no evidence of pulmonary edema. Cardiomediastinal silhouette is stable. IMPRESSION: No acute cardiopulmonary findings. Electronically signed by: Boris Ford M.D. 06/01/2017 5:19 PM Dictated Date/Time: 06/01/2017 5:17 PM EKG EKG shows normal sinus rhythm at 81 bpm, nonspecific ST T changes. 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 Flexeril 10 mg by mouth twice a day, baclofen 20 mg by mouth twice a day Consult PT/OT/neonatal social worker-- No further neurologic workup needs to be done. Heart disease/hypertension/mitral valve disorder-- The patient will be admitted to telemetry for serial cardiac enzymes, cardiac rhythm monitoring and a 2-D echocardiogram with Dopplers. Continue aspirin 81 mg by mouth daily, lisinopril 20 mg by mouth every morning. Diabetes mellitus/TPN-- Current Lantus insulin from 46 units subcutaneous twice a day the 30 units subcutaneous twice a day, and hold tonight if blood sugar less than 150. Hold metformin 1000 mg by mouth twice a day. Place on Accu-Cheks before meals and at bedtime with NovoLog coverage per scale. Continue Lyrica 200 mg by mouth 3 times a day. Anxiety/Depression/insomnia-- Buspirone 7.5 mg by mouth twice a day. Melatonin 5 mg by mouth at bedtime. Hyperlipidemia-- Simvastatin 40 mg by mouth daily. GERD-- Change omeprazole to pantoprazole. Hypothyroidism--continue levothyroxine sodium. Level of Care Telemetry Advanced Directives Existing Advance Directive: No Existing Living Will: No Existing Power of Ux Specialist: No Resuscitation Status FULL RESUSCITATION VTE Prophylaxis VTE Risk Assessment Done? Y/N: Yes Risk Level: Moderate Given or contraindicated: SCD's
[2017-06-01] MEDS ORDERED: ONDANSETRON INJ 2 MG/ML 2 ML VIAL IV PRN (19:45)
[2017-06-01] MEDS ORDERED: GLUCOSE 40% GEL 15 GM TUBE PO PRN (19:45)
[2017-06-01] MEDS ORDERED: DEXTROSE 50% 50 ML SYR IV PRN (19:45)
[2017-06-01] MEDS ORDERED: GLUCOSE 10 TABS/TUBE PO PRN (19:45)
[2017-06-01] MEDS ORDERED: GLUCAGON FOR INJ 1 MG VIAL SQ PRN (19:45)
[2017-06-01] MEDS ORDERED: IV FLUIDS COMPLETED PRN (20:00)
[2017-06-01 20:26] VITALS: O2SAT 98
[2017-06-01] MEDS ORDERED: NON-FORMULARY MEDICATION (Melatonin 5 MG) PO SCH (21:00)
[2017-06-01] MEDS: INSULIN ASPART 100 UNITS/ML 3 ML PEN SC SCH (21:00)
[2017-06-01] MEDS: INSULIN GLARGINE SOLOSTAR 100 UNITS/ML 3 ML PEN SQ SCH (21:00)
[2017-06-01 21:11] VITALS: BP 154/78; PULSE 72; TEMP 36.9; O2SAT 97
[2017-06-01] MEDS: CYCLOBENZAPRINE HCL 10 MG TAB PO SCH (21:24)
[2017-06-01] MEDS: BACLOFEN TAB 20 MG TAB PO SCH (21:24)
[2017-06-01] MEDS: PREGABALIN 100 MG CAP PO SCH (21:29)
--- NOTE | 2017-06-01 22:02 | EMERGENCY ROOM VISIT NOTE ---
History Report prepared by Ana: Francoise Garcia Under the Supervision of: Dr. Evelio Quezada D.O. First contact with patient: 16:15 Stated Complaint: FALL/ HEAD PAIN History of Present Illness The patient is a 67 year old male who presents to the Emergency Room with complaints of an episode of left leg weakness [employer]HB[employer]OD [employer]. He presents to the ED by EMS. The patient was at work today at [employer]. His legs felt heavy throughout the day as he was working. He was walking slower than usual, but was feeling well otherwise. After work, he was walking to the bus stop when his left leg started feeling "rubbery". He held onto a brick wall for support. When he went to get on the bus, his left leg gave out from under him and he fell to his left knee. He felt unable to move his left leg. He denies any head injury or LOC. He remembers the entire incident. He feels back to normal now. It took 10-15 minutes before he improved. He lives alone and was concerned about being at home alone. He denies any problems with his right leg today. He denies any left leg numbness, back pain, left arm pain, facial tingling or numbness, headache, double vision, lightheadedness, or dizziness. He has a history of sciatica, but states that the episode today was not like his sciatica. He notes that he has had a DVT in his right leg. He had a right knee operation in February. He has not had any problems with his left leg before. He is not on any blood thinners. 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 Review of Systems See HPI for pertinent positives & negatives. A total of 10 systems reviewed and were otherwise negative. 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 Social History Smoking Status: Former Smoker Alcohol Use: none Drug Use: none Marital Status: single Occupation Status: employed, retired Current/Historical Medications Scheduled Aspirin (Aspirin Ec), 81 MG PO DAILY Baclofen (Lioresal), 20 MG PO BID Buspirone Hcl (Buspirone Hcl), 7.5 MG PO BID Calcium Carbonate (Tums), 2 TAB PO PRN Cyclobenzaprine Hcl (Flexeril), 10 MG PO BID Insulin Glargine (Lantus), 46 UNITS SQ AMPM Insulin Human Lispro (Humalog Kwikpen), UNITS SQ TIDM Levothyroxine Sodium (Levothyroxine Sodium), 1 TAB PO QAM Lisinopril (Zestril), 20 MG PO QAM Melatonin (Melatonin), 5 MG PO HS Metformin Hcl (Glucophage), 1,000 MG PO BID Naproxen (Naprosyn), 1 TAB PO Q12 Omeprazole (Prilosec), 20 MG PO QAM Pregabalin (Lyrica), 200 MG PO TID Rosuvastatin Calcium (Crestor), 40 MG PO DAILY Scheduled PRN Ibuprofen (Advil), 400 MG PO Q6 PRN for Headache or Pain Allergies Coded Allergies: Iodinated Diagnostic Agents (Verified Allergy, Severe, ANAPHYLAXIS, ) Iodine (Verified Allergy, Severe, ANAPHYLAXIS, 03/23/17) HAS EATEN SHELLFISH IN RECENT PAST W/O PROBLEM Physical Exam Vital Signs Date Time Temp Pulse Resp B/P (MAP) Pulse Ox O2 Delivery O2 Flow Rate FiO2 06/01/17 18:51 76 156/80 97 Room Air 06/01/17 17:23 72 20 121/77 98 Room Air 06/01/17 16:37 95 Room Air 06/01/17 16:21 36.7 87 20 151/88 95 Room Air Physical Exam GENERAL: sitting up in bed, alert, well appearing, well nourished, no distress, non-toxic EYE EXAM: normal conjunctiva, PERRL and EOM's intact OROPHARYNX: no exudate, no erythema, lips, buccal mucosa, and tongue normal and mucous membranes are moist NECK: supple, no nuchal rigidity, no adenopathy, non-tender LUNGS: Clear to auscultation. Normal chest wall mechanics HEART: no murmurs, S1 normal and S2 normal ABDOMEN: abdomen soft, non-tender, normo-active bowel sounds, no masses, no rebound or guarding. BACK: Back is symmetrical on inspection and there is no deformity, no midline tenderness, no CVA tenderness. SKIN: no rashes and no bruising UPPER EXTREMITIES: upper extremities are grossly normal. LOWER EXTREMITIES: No pitting edema. NEURO EXAM: Normal sensorium, cranial nerves II-XII intact, normal speech, no weakness of arms, no weakness of legs. No drift. Finger to nose intact. Gross sensation intact. Able to ambulate without difficulty. Medical Decision & Procedures ER Provider Diagnostic Interpretation: Radiology results as stated below per my review and the radiologist's interpretation: CHEST ONE VIEW PORTABLE CLINICAL HISTORY: Stroke symptoms. COMPARISON STUDY: Chest radiograph November 25, 2015. FINDINGS: Lung volumes are normal. No pneumothorax or pleural effusion is present. There is no evidence of pulmonary edema. Cardiomediastinal silhouette is stable. IMPRESSION: No acute cardiopulmonary findings. Electronically signed by: Boris Ford M.D. 06/01/2017 5:19 PM Dictated Date/Time: 06/01/2017 5:[address] OF THE HEAD WITHOUT CONTRAST CLINICAL HISTORY: Stroke symptoms. Left leg weakness. Fall. COMPARISON STUDY: Head CT February 05, 2014. CT DOSE: 823.94 mGycm TECHNIQUE: Helical axial images of the head were obtained without IV contrast. Automated exposure control was utilized for the study. A dose lowering technique was utilized adhering to the principles of ALARA. FINDINGS: No acute intracranial hemorrhage, midline shift or mass effect is present. Ventricular system is stable. Basilar cisterns are patent. There are no extra-axial collections. Arzola-white differentiation is maintained. There are no findings to suggest acute dural sinus thrombosis or acute territorial infarct. There is no calvarial fracture. Probable left maxillary sinus mucous retention cyst is partially imaged. IMPRESSION: No acute intracranial findings. Electronically signed by: Boris Ford M.D. 06/01/2017 5:15 PM Dictated Date/Time: 06/01/2017 5:08 PM Laboratory Results 06/01/17 16:31 Red Blood Count 4.64, Mean Corpuscular Volume 89.0, Mean Corpuscular Hemoglobin 29.7, Mean Corpuscular Hemoglobin Concent 33.4, Mean Platelet Volume 12.4, Neutrophils (%) (Auto) 54.1, Lymphocytes (%) (Auto) 33.2, Monocytes (%) (Auto) 9.3, Eosinophils (%) (Auto) 2.7, Basophils (%) (Auto) 0.5, Neutrophils # (Auto) 3.43, Lymphocytes # (Auto) 2.10, Monocytes # (Auto) 0.59, Eosinophils # (Auto) 0.17, Basophils # (Auto) 0.03 06/01/17 16:31 Test 06/01/17 16:31 White Blood Count 6.33 K/uL (4.8-10.8) Red Blood Count 4.64 M/uL (4.7-6.1) Hemoglobin 13.8 g/dL (14.0-18.0) Hematocrit 41.3 % (42-52) Mean Corpuscular Volume 89.0 fL (80-100) Mean Corpuscular Hemoglobin 29.7 pg (25-34) Mean Corpuscular Hemoglobin Concent 33.4 g/dl (32-36) Platelet Count 148 K/uL (130-400) Mean Platelet Volume 12.4 fL (7.4-10.4) Neutrophils (%) (Auto) 54.1 % Lymphocytes (%) (Auto) 33.2 % Monocytes (%) (Auto) 9.3 % Eosinophils (%) (Auto) 2.7 % Basophils (%) (Auto) 0.5 % Neutrophils # (Auto) 3.43 K/uL (1.4-6.5) Lymphocytes # (Auto) 2.10 K/uL (1.2-3.4) Monocytes # (Auto) 0.59 K/uL (0.11-0.59) Eosinophils # (Auto) 0.17 K/uL (0-0.5) Basophils # (Auto) 0.03 K/uL (0-0.2) RDW Standard Deviation 42.4 fL (36.4-46.3) RDW Coefficient of Variation 13.0 % (11.5-14.5) Immature Granulocyte % (Auto) 0.2 % Immature Granulocyte # (Auto) 0.01 K/uL (0.00-0.02) Prothrombin Time 10.9 SECONDS (9.0-12.0) Prothromb Time International Ratio 1.0 (0.9-1.1) Activated Partial Thromboplast Time 27.3 SECONDS (21.0-31.0) Partial Thromboplastin Ratio 1.1 Anion Gap 6.0 mmol/L (3-11) Est Creatinine Clear Calc Drug Dose 135.1 ml/min Estimated GFR () 107.0 Estimated GFR (Non- 92.3 BUN/Creatinine Ratio 24.0 (10-20) Calcium Level 9.2 mg/dl (8.5-10.1) Total Creatine Kinase 839 U/L (39-308) Creatine Kinase MB 5.7 ng/ml (0.5-3.6) Creatine Kinase MB Ratio 0.7 (0-3.0) Troponin I < 0.015 ng/ml (0-0.045) Laboratory results per my review. Medications Administered Medications (Trade) Dose Ordered Sig/Isaac Route Start Time Stop Time Status Last Admin Dose Admin Sodium Chloride 1,000 ml @ 50 mls/hr Q20H IV 06/01/17 16:23 06/01/17 20:51 DC 06/01/17 16:42 50 MLS/HR Aspirin (Aspirin Chew) 324 mg NOW STAT PO 06/01/17 18:45 06/01/17 18:46 DC 06/01/17 19:03 324 MG ECG Indication: weakness Rate (beats per minute): 81 Rhythm: sinus rhythm Findings: no ectopy, other (normal axis) ED Course ED COURSE: Vital signs were reviewed and showed normal vitals. The patients medical record was reviewed The above diagnostic studies were performed and reviewed. ED treatments and interventions as stated above. 1615: The patient was evaluated in room B12B. A complete history and physical examination was performed. 1623: NSS 1000 ml @ 50 mls/hr IV. 1727: I reevaluated the patient. He is complaining of minimal tenderness just proximal to the left medial knee. 1806: I discussed the patient's case with Dr. Thompson, [facility] neurology. He is familiar with the patient and recommends he be evaluated for a stroke work up considering his risk factors. 1809: Upon reevaluation, the patient is resting comfortably.I discussed my findings with the patient and he understands and agrees with the treatment plan. Based on the patients age, coexisting illnesses, exam and lab findings the decision to treat as an inpatient was made. The patient remained stable while under my care. The patient will be evaluated for further management. 1843: I reviewed the patient's case with Dr. Noble [facility] hospitalist. She will evaluate the patient for further management. 1844: Aspirin 324 mg PO. Medical Decision Differential Diagnosis includes but is not limited to ischemic Stroke, hemorrhagic stroke, bells palsy, mass, neoplasm, migraine headache, seizure, subarachnoid hemorrhage, TIA, and transient global amnesia. Patient is a 67-year-old male who presents to ER following his left leg becoming unresponsive for 10-15 minutes. He notes he was unable to use it. He did fall secondary to this. This has never happened before. He doesn't history diabetes, hypertension and hyperlipidemia. CBC all BMP and troponin was negative. CT head was negative. EKG unremarkable. Discussed with his neurologist who recommends observation overnight as he is already taking aspirin and this could've been a TIA which I do favor. Patient was updated at bedside. Patient was admitted to internal medicine. Medication Reconcilliation Current Medication List: was personally reviewed by me Blood Pressure Screening Patient's blood pressure: Normal blood pressure Blood pressure disposition: Did not require urgent referral Consults Time Called: 1802 Consulting Physician: Dr. Thompson [facility] neurology Returned Call: 1805 I discussed the patient's case with him. He is familiar with the patient and recommends he be evaluated for a stroke work up considering his risk factors. Additional Consults: Time Called: 1841 Consulted Physician: Dr. Noble [facility] hospitalist Returned Call: 1843 Additional Comments: I reviewed the patient's case with her. She will evaluate the patient for further management. Impression Primary Impression: TIA (transient ischemic attack) Additional Impression: Weakness of left lower extremity Scribe Attestation The scribe's documentation has been prepared under my direction and personally reviewed by me in its entirety. I confirm that the note above accurately reflects all work, treatment, procedures, and medical decision making performed by me. Departure Information Dispostion Being Evaluated By Hospitalist Referrals Adi Osborne III, CRNP (PCP) Problem Qualifiers Primary Impression: TIA (transient ischemic attack) Transient cerebral ischemia type: unspecified Qualified Codes: G45.9 - Transient cerebral ischemic attack, unspecified
[2017-06-01 23:05] VITALS: Ht 185.4 cm; Wt 145.8 kg
[2017-06-02] VITALS: BP 135/68; PULSE 75; TEMP 36.6; O2SAT 96
[2017-06-02 04:17] LABS: MEAN CORPUSCULAR HGB CONC 32.1 g/dl (32-36)
[2017-06-02 04:28] LABS: PARTIAL THROMBOPLASTIN RATIO 1.1
[2017-06-02 04:37] LABS: BLOOD UREA NITROGEN 17 mg/dl (7-18); BUN/CREATININE RATIO 21.4 (10-20); CALCIUM 8.8 mg/dl (8.5-10.1); CARBON DIOXIDE 29 mmol/L (21-32); CHLORIDE 107 mmol/L (98-107); CREATININE 0.78 mg/dl (0.60-1.40); GLUCOSE 171 mg/dl (70-99); POTASSIUM 3.9 mmol/L (3.5-5.1); SODIUM 140 mmol/L (136-145)
[2017-06-02 04:42] LABS: CKMB/CK RATIO 0.7 (0-3.0)
[2017-06-02 04:53] LABS: HEMATOCRIT 41.1 % (42-52); MEAN CELL VOLUME 91.1 fL (80-100); MEAN CORPUSCULAR HEMOGLOBIN 29.3 pg (25-34); MEAN PLATELET VOLUME 12.3 fL (7.4-10.4); PLATELET COUNT 121 K/uL (130-400); RED BLOOD COUNT 4.51 M/uL (4.7-6.1); WHITE BLOOD COUNT 5.43 K/uL (4.8-10.8)
[2017-06-02 05:04] LABS: BASO % 0.4 %; BASO ABS # 0.02 K/uL (0-0.2); COMPLETE YES; EOS % 2.9 %; IG% 0.2 %; LARGE PLATELETS 1+; LYMPH % 39.2 %; LYMPH ABS # 2.13 K/uL (1.2-3.4); MONO % 10.1 %; NEUT % 47.2 %; OVALOCYTES 1+
[2017-06-02 05:20] VITALS: BP 136/87; PULSE 70; TEMP 36.5; O2SAT 97
[2017-06-02] MEDS ORDERED: LEVOTHYROXINE 50 MCG TAB PO SCH (06:30)
[2017-06-02 07:51] VITALS: BP 144/79; PULSE 73; TEMP 36.8; O2SAT 95
[2017-06-02] MEDS: CYCLOBENZAPRINE HCL 10 MG TAB PO SCH (08:11)
[2017-06-02] MEDS: PREGABALIN 100 MG CAP PO SCH ×2 (08:12→14:01)
[2017-06-02] MEDS: BACLOFEN TAB 20 MG TAB PO SCH (08:12)
[2017-06-02] MEDS: INSULIN ASPART 100 UNITS/ML 3 ML PEN SC SCH ×2 (08:18→11:57)
[2017-06-02] MEDS: INSULIN GLARGINE SOLOSTAR 100 UNITS/ML 3 ML PEN SQ SCH (08:19)
[2017-06-02] MEDS ORDERED: PANTOprazole SOD 40 MG TAB PO SCH (09:00)
[2017-06-02] MEDS ORDERED: ASPIRIN 81 MG ECTAB PO SCH (09:00)
[2017-06-02] MEDS ORDERED: ROSUVASTATIN CALCIUM 20 MG TAB PO SCH (09:00)
[2017-06-02] MEDS ORDERED: LISINOPRIL 20 MG TAB PO SCH (09:00)
--- NOTE | 2017-06-02 11:39 | Discharge Instructions ---
Discharge Instructions Date of Service Jun 02, 2017. Admission Reason for Admission: FALL Discharge Discharge Diagnosis / Problem: Mechanical Fall from Deconditioning Discharge Goals Goal(s): Decrease discomfort, Improve function, Increase independence Activity Recommendations Activity Limitations: resume your previous activity (utilize cane for walking assistance) . Instructions / Follow-Up Instructions / Follow-Up Mechanical Fall from Deconditioning and Diabetic Neuropathy and Sciatica: - Recommend utilizing a cane to assist with walking until you are stronger. - Continue your medications as previously prescribed. - Recommend home health services for PT to help with walking and strength training Current Hospital Diet Patient's current hospital diet: Diabetes Type 2 Diet Discharge Diet Recommended Diet: Diabetes Type 2 Diet Pending Studies Studies pending at discharge: no Laboratory Results Hemoglobin A1c Test 03/15/17 11:13 Range/Units Estimated Average Glucose 177 mg/dl Hemoglobin A1c 7.8 H 4.5-5.6 % Medical Emergencies . Who to Call and When: Medical Emergencies: If at any time you feel your situation is an emergency, please call 911 immediately. . Non-Emergent Contact Non-Emergency issues call your: Primary Care Provider Call Non-Emergent contact if: you have a fever, your pain is concerning you, you have any medication questions . . "Provider Documentation" section prepared by Kaykay Richards. . VTE Core Measure Inpt VTE Proph given/why not?: SCD's
[2017-06-02 11:59] VITALS: BP 136/88; PULSE 72; TEMP 36.7; O2SAT 96
[2017-06-02 12:41] LABS: CKMB/CK RATIO 0.7 (0-3.0)
--- NOTE | 2017-06-02 14:14 | Discharge Summary ---
Discharge Summary Date of Service Jun 02, 2017. Discharge Summary Admission Date: Jun 01, 2017 at 19:41 Discharge Date: Jun 02, 2017 Discharge Disposition: Home with services Principal Diagnosis: Acute Ambulatory Dysfunction Problems/Secondary Diagnoses: 1. T2DM with Diabetic Neuropathy 2. S/P Fall with R Patella Injury and Repair in February 2017 Immunizations: Have You Had Influenza Vaccine: N/A History of Tetanus Vaccine?: Yes Tetanus Immunization Date: Apr 13, 1995 History of Pneumococcal: No History of Hepatitis B Vaccine: No Procedures: CT OF THE HEAD WITHOUT CONTRAST FINDINGS: No acute intracranial hemorrhage, midline shift or mass effect is present. Ventricular system is stable. Basilar cisterns are patent. There are no extra-axial collections. Arzola-white differentiation is maintained. There are no findings to suggest acute dural sinus thrombosis or acute territorial infarct. There is no calvarial fracture. Probable left maxillary sinus mucous retention cyst is partially imaged. IMPRESSION: No acute intracranial findings. CHEST ONE VIEW PORTABLE FINDINGS: Lung volumes are normal. No pneumothorax or pleural effusion is present. There is no evidence of pulmonary edema. Cardiomediastinal silhouette is stable. IMPRESSION: No acute cardiopulmonary findings. Consultations: 1. PT/OT Medication Reconciliation Continued Medications: Aspirin (Aspirin Ec) 81 Mg Tab 81 MG PO DAILY Baclofen (Lioresal) 10 Mg Tab 20 MG PO BID, TAB Buspirone Hcl (Buspirone Hcl) 7.5 Mg Tab 7.5 MG PO BID Calcium Carbonate (Tums) 500 Mg Chew 2 TAB PO PRN Cyclobenzaprine Hcl (Flexeril) 10 Mg Tab 10 MG PO BID, #21 TAB Ibuprofen (Advil) 200 Mg Tab 400 MG PO Q6 PRN for Headache or Pain, TAB Insulin Glargine (Lantus) 100 Unit/Ml Inj 46 UNITS SQ AMPM, VIAL Insulin Human Lispro (Humalog Kwikpen) 100 Units/Ml Inj UNITS SQ TIDM TID PER SLIDING SCALE PER PT. RANGE 115-120 Levothyroxine Sodium (Levothyroxine Sodium) 50 Mcg Tab 1 TAB PO QAM for 90 Days, #90 TAB 3 Refills Lisinopril (Zestril) 20 Mg Tab 20 MG PO QAM, 0 Refills Melatonin (Melatonin) 5 Mg Cap 5 MG PO HS Metformin Hcl (Glucophage) 500 Mg Tab 1000 MG PO BID, TAB Naproxen (Naprosyn) Unknown Strength Tab 1 TAB PO Q12, TAB Omeprazole (Prilosec) 20 Mg Capcr 20 MG PO QAM Pregabalin (Lyrica) 200 Mg Cap 200 MG PO TID, CAP Rosuvastatin Calcium (Crestor) 40 Mg Tab 40 MG PO DAILY, TAB Discharge Exam Review of Systems: Constitutional: No fever, No chills Eyes: No worsening of vision ENT: No nasal symptoms, No sore throat, No trouble swallowing Respiratory: No cough, No shortness of breath Cardiovascular: No chest pain, No palpitations Abdomen: No pain, No nausea, No vomiting, No diarrhea, No constipation Musculoskeletal: No joint pain, No muscle pain, No swelling, No calf pain Genitourinary - Male: No dysuria Neurologic: No weakness, No balance problems Hematologic / Lymphatic: No abnormal bleeding/bruising Integumentary: No rash, No new/changing skin lesions Physical Exam: General Appearance: WD/WN, no apparent distress Eyes: sclerae normal ENT: hearing grossly normal Neck: supple, no JVD, trachea midline Respiratory/Chest: lungs clear, normal breath sounds, no respiratory distress, no accessory muscle use Cardiovascular: regular rate, rhythm, no gallop, no murmur Abdomen / GI: normal bowel sounds, non tender, soft Extremities: no calf tenderness, no pedal edema, + pertinent finding (R knee with well-healed surgical incision; L knee non-tender to palp, no edema, no laxity of patella; anterior/posterior drawer test neg - no laxity; McMurrays testing negative) Neurologic/Psychiatric: alert, oriented x 3 Skin: normal color, warm/dry Hospital Course ADMISSION: The patient is a 67-year-old male who presents to the emergency department by EMS after reporting that his left leg gave way as he was stepping onto a bus earlier this evening. The technical business analyst called EMS and police escorted the patient to the hospital. The patient denies any neurologic symptoms as far as lightheadedness, dizziness, headache, confusion, memory loss, numbness or tingling in arms or legs, low back pain.. He reports that his left leg just gave way. He did undergo patellar repair surgery in February after a fall. HOSPITAL COURSE: Mr. Alicia was admitted due to ambulatory dysfunction leading to a fall prior to admission. His legs felt "heavy" all day prior to the fall and feels that he has deconditioned over the past couple months due to his R patellar repair. He reports overcompensating on his L side which may have caused him issues yesterday. He has not had problems with his R knee since repair and he denies direct trauma of the L knee. Ambulation is complicated by diabetic neuropathy and sciatica. He reports improvement in his walking with the aide of a cane and was provided one. He has a chronic facial droop but no focal neurological deficits. McMurrays and Posterior/Anterior Drawer tests are negative, patella without laxity, and no pain is palpable in the knee. Patient is optimal for discharge with home services for PT. Total Time Spent: Greater than 30 minutes This includes examination of the patient, discharge planning, medication reconciliation, and communication with other providers. Discharge Instructions Please refer to the electronic Patient Visit Report (Discharge Instructions) for additional information. Additional Copies To Adi Osborne III, CRNP
[2017-06-02 14:19] VITALS: BP 136/88; PULSE 72; TEMP 36.7; O2SAT 96
== END 2017-06-02 15:26 | disposition home or self-care (01) ==
LOC: EDBD 16:14 → C.EDB 16:15 → C.MED 19:41 → ENRESERV 19:59
PROVIDERS: ADMIT Hospitalist; ATTEND Internal Medicine
DX: G45.9 Transient cerebral ischemic attack, unspecified (principal); M62.81 Muscle weakness (generalized); R51 Headache; T14.90 Injury, unspecified; W19.XXXA Unspecified fall, initial encounter; I10 Essential (primary) hypertension; F32.9 Major depressive disorder, single episode, unspecified; E11.9 Type 2 diabetes mellitus without complications; M16.10 Unilateral primary osteoarthritis, unspecified hip; Z79.4 Long term (current) use of insulin; E78.5 Hyperlipidemia, unspecified; Z79.899 Other long term (current) drug therapy

== ENCOUNTER 2017-06-05 11:47 | Emergency (ER) | payer OTHER ==
[~2017-06-05] VITALS: Ht 185.4 cm; Wt 149.8 kg
[~2017-06-05 11:47] MED LIST changes: -ACET-1256 PO; -CRS20 PO; +IBUP-1050 PO; -INSDGI SC; +INSDGI SQ; -MELA1TAB5 PO; +MELA5CAP PO; +NAPR250T2 PO; -PREG150C PO; +PREG200C PO; +ROSU40TA PO; -RXC5 PO
[2017-06-05 11:53] VITALS: TEMP 36.9; Ht 185.4 cm; Wt 149.8 kg
[2017-06-05] MEDS ORDERED: SODIUM CHLORIDE 0.9% 1000ML 1,000 ML IV STA (12:14)
[2017-06-05 12:16] VITALS: O2SAT 98
[2017-06-05 12:25] LABS: BASO % 0.4 %; BASO ABS # 0.02 K/uL (0-0.2); COMPLETE YES; EOS % 1.5 %; HEMATOCRIT 41.2 % (42-52); LYMPH % 25.8 %; MEAN CELL VOLUME 89.8 fL (80-100); MEAN CORPUSCULAR HEMOGLOBIN 29.8 pg (25-34); MEAN CORPUSCULAR HGB CONC 33.3 g/dl (32-36); MEAN PLATELET VOLUME 12.5 fL (7.4-10.4); MONO % 9.2 %; NEUT % 63.1 %; PLATELET COUNT 138 K/uL (130-400); RED BLOOD COUNT 4.59 M/uL (4.7-6.1); WHITE BLOOD COUNT 5.42 K/uL (4.8-10.8)
--- NOTE | 2017-06-05 12:32 | EMERGENCY ROOM VISIT NOTE ---
History Report prepared by Ana: Dennis Ramos Under the Supervision of: Dr. Gunnar Hardy M.D. First contact with patient: 12:03 Chief Complaint: FALL Stated Complaint: FALL/GENERALIZED WEAKNESS History of Present Illness The patient is a 67 year old male who presents to the Emergency Room with complaints of sudden onset bilateral leg weakness starting last week. The patient states that he was walking around [employer] for around 10 minutes, he got very weak, his legs gave out from under him, and he fell to the ground. The patient states that he was able to sit up afterwards and he could stand. He states that he did not hit his head. He states that he was recently here for leg weakness, and he was admitted for a possible CVA or TIA, though they were ruled out. He then followed up with PT and OT, and they recommended a cane and strengthening exercises. The patient states that he has a history of sciatica, diabetic neuropathy, a heart catheterization, diabetic neuropathy, a chronic facial droop, patellar tear a few months ago. The patient states that he was recently in a cast for the patellar tear, though he states that he has been walking around recently, and he feels as if his balance is not as good and his knees are buckling. He states that he is on baclofen for the past few years for cramping in his legs. Denies taking more than his prescription. The patient denies any urinary symptoms, back pain, nausea, vomiting, chest pain, shortness of breath, cough, congestion, or loss of bowels. He states that he had back surgery for spinal stenosis and damage to his vertebrae. The patient is currently waiting for some home physical therapy. Source of History: patient Onset: prior to arrival Position: leg (bilateral) Quality: other (weakness) Timing: other (sudden onset) Associated Symptoms: No cough, No SOB, No nausea, No vomiting, No back pain , No urinary symptoms Note: Associated symptoms: fall Review of Systems See HPI for pertinent positives and negatives. A total of ten systems were reviewed and were otherwise negative. 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 Social History Smoking Status: Former Smoker Alcohol Use: none Drug Use: none Marital Status: single Occupation Status: employed, retired Current/Historical Medications Scheduled Aspirin (Aspirin Ec), 81 MG PO DAILY Baclofen (Lioresal), 20 MG PO BID Buspirone Hcl (Buspirone Hcl), 7.5 MG PO BID Calcium Carbonate (Tums), 2 TAB PO PRN Cyclobenzaprine Hcl (Flexeril), 10 MG PO BID Insulin Glargine (Lantus), 46 UNITS SQ AMPM Insulin Human Lispro (Humalog Kwikpen), UNITS SQ TIDM Levothyroxine Sodium (Levothyroxine Sodium), 1 TAB PO QAM Lisinopril (Zestril), 20 MG PO QAM Melatonin (Melatonin), 5 MG PO HS Metformin Hcl (Glucophage), 1,000 MG PO BID Naproxen (Naprosyn), 500 MG PO Q12 Omeprazole (Prilosec), 20 MG PO QAM Pregabalin (Lyrica), 200 MG PO TID Rosuvastatin Calcium (Crestor), 40 MG PO DAILY Scheduled PRN Ibuprofen (Advil), 400 MG PO Q6 PRN for Headache or Pain Allergies Coded Allergies: Iodinated Diagnostic Agents (Verified Allergy, Severe, ANAPHYLAXIS, ) Iodine (Verified Allergy, Severe, ANAPHYLAXIS, 06/05/17) HAS EATEN SHELLFISH IN RECENT PAST W/O PROBLEM Physical Exam Vital Signs Date Time Temp Pulse Resp B/P (MAP) Pulse Ox O2 Delivery O2 Flow Rate FiO2 06/05/17 17:13 80 18 143/81 97 Room Air 06/05/17 15:30 87 18 137/78 98 Room Air 06/05/17 13:44 74 18 120/79 98 Room Air 06/05/17 12:44 83 18 116/75 97 Room Air 06/05/17 12:33 84 06/05/17 12:16 98 Room Air 06/05/17 11:53 36.9 89 18 155/76 97 Room Air Physical Exam GENERAL: Awake, alert, well-appearing, in no distress HENT: Dry mucous membranes. Normocephalic, atraumatic. Oropharynx unremarkable. EYES: Normal conjunctiva. Sclera non-icteric. NECK: Supple. No nuchal rigidity. FROM. No JVD. RESPIRATORY: Clear to auscultation. CARDIAC: Regular rate, normal rhythm. Extremities warm and well perfused. Pulses equal. ABDOMEN: Obese. Soft, non-distended. No tenderness to palpation. No rebound or guarding. No masses. RECTAL: Deferred. MUSCULOSKELETAL: Chest examination reveals no tenderness. The back is symmetrical on inspection without obvious abnormality. There is no CVA tenderness to palpation. No joint edema. NTTP, no step offs LOWER EXTREMITIES: Recent right knee surgery surgical scar is clean, dry, and intact with no erythema or warmth or tenderness. Calves are equal size bilaterally and non-tender. No edema. No discoloration. NEURO: 5/5 strength. SILT x4 extremities. Normal sensorium. No sensory or motor deficits noted. SKIN: No rash or jaundice noted. Medical Decision & Procedures ER Provider Diagnostic Interpretation: Radiology results as stated below per my review and radiologist interpretation: CHEST ONE VIEW PORTABLE CLINICAL HISTORY: 67 years-old Male presenting with CHEST PAIN. TECHNIQUE: Portable upright AP view of the chest was obtained. COMPARISON: 06/01/2017. FINDINGS: Cardiomediastinal silhouette normal. Lungs and pleural spaces clear. Osseous structures normal. Upper abdomen normal. IMPRESSION: 1. No acute cardiopulmonary disease. Electronically signed by: Jorge Connor M.D. 06/05/2017 12:52 PM Dictated Date/Time: 06/05/2017 12:52 PM Laboratory Results 06/05/17 12:09 Red Blood Count 4.59, Mean Corpuscular Volume 89.8, Mean Corpuscular Hemoglobin 29.8, Mean Corpuscular Hemoglobin Concent 33.3, Mean Platelet Volume 12.5, Neutrophils (%) (Auto) 63.1, Lymphocytes (%) (Auto) 25.8, Monocytes (%) (Auto) 9.2, Eosinophils (%) (Auto) 1.5, Basophils (%) (Auto) 0.4, Neutrophils # (Auto) 3.42, Lymphocytes # (Auto) 1.40, Monocytes # (Auto) 0.50, Eosinophils # (Auto) 0.08, Basophils # (Auto) 0.02 06/05/17 12:09 Test 06/05/17 12:09 06/05/17 14:02 White Blood Count 5.42 K/uL (4.8-10.8) Red Blood Count 4.59 M/uL (4.7-6.1) Hemoglobin 13.7 g/dL (14.0-18.0) Hematocrit 41.2 % (42-52) Mean Corpuscular Volume 89.8 fL (80-100) Mean Corpuscular Hemoglobin 29.8 pg (25-34) Mean Corpuscular Hemoglobin Concent 33.3 g/dl (32-36) Platelet Count 138 K/uL (130-400) Mean Platelet Volume 12.5 fL (7.4-10.4) Neutrophils (%) (Auto) 63.1 % Lymphocytes (%) (Auto) 25.8 % Monocytes (%) (Auto) 9.2 % Eosinophils (%) (Auto) 1.5 % Basophils (%) (Auto) 0.4 % Neutrophils # (Auto) 3.42 K/uL (1.4-6.5) Lymphocytes # (Auto) 1.40 K/uL (1.2-3.4) Monocytes # (Auto) 0.50 K/uL (0.11-0.59) Eosinophils # (Auto) 0.08 K/uL (0-0.5) Basophils # (Auto) 0.02 K/uL (0-0.2) RDW Standard Deviation 42.1 fL (36.4-46.3) RDW Coefficient of Variation 12.9 % (11.5-14.5) Immature Granulocyte % (Auto) 0.0 % Immature Granulocyte # (Auto) 0.00 K/uL (0.00-0.02) Anion Gap 7.0 mmol/L (3-11) Est Creatinine Clear Calc Drug Dose 147.8 ml/min Estimated GFR () 111.0 Estimated GFR (Non- 95.7 BUN/Creatinine Ratio 19.6 (10-20) Calcium Level 9.4 mg/dl (8.5-10.1) Phosphorus Level 2.3 mg/dl (2.5-4.9) Magnesium Level 1.8 mg/dl (1.8-2.4) Total Creatine Kinase 612 U/L (39-308) Troponin I < 0.015 ng/ml (0-0.045) Pro-B-Type Natriuretic Peptide 9 pg/ml (0-900) Lactic Acid Level 1.4 mmol/L (0.4-2.0) Laboratory results reviewed by me Medications Administered Medications (Trade) Dose Ordered Sig/Isaac Route Start Time Stop Time Status Last Admin Dose Admin Sodium Chloride 1,000 ml @ 999 mls/hr Q1H1M STAT IV 06/05/17 12:14 06/05/17 13:14 DC 06/05/17 12:24 999 MLS/HR ECG Indication: weakness Rate (beats per minute): 89 Rhythm: normal sinus Findings: no acute ischemic change, other (normal axis) ED Course 1203: The patient was evaluated in room B9. A complete history and physical exam was performed. 1214: Sodium Chloride 1000 ml @ 999 mls/hr IV 1610: I reevaluated the patient. Discussed results and discharge instructions: He verbalized understanding and agreement. The patient is ready for discharge. Medical Decision I reviewed the patient's past medical history, medications, and the nursing notes as described above. Differential diagnoses include: Persistent generalized weakness and deconditioning, lumbar radiculopathy, Guillain-Davis, stroke The patient is a 67-year-old gentleman with a past medical history of hypertension, hyperlipidemia, recent admission for lower extremity weakness believed to be secondary to deconditioning needing in the setting of a patellar surgery 2 months ago after which he did not receive any rehabilitation, presenting with episode of weakness in his legs while he was at [employer] and all of a sudden felt weak in his legs and lowered himself down while holding onto his grocery cart per history of present illness. On arrival the patient is in no acute distress, afebrile with stable vital signs. Patient has 5 out of 5 strength and sensation intact to light touch in all extremities. No clonus. Normal reflexes. Guillain-Alex unlikely. Patient denies any urinary retention or bowel incontinence. Cord compression unlikely. Given the patient's vague complaints of generalized weakness and fatigue ACS workup was done in the setting of constant symptoms, chest x-ray and EKG unremarkable. Troponin negative in the setting of constant symptoms. Labs otherwise unremarkable including WBC and lactate within normal limits. BUN/creatinine ~ 20 suggesting likely prerenal component. The patient was given IV fluids and felt improvement. I discussed with the patient is negative workup and the fact that he has outpatient physical therapy evaluation pending from his discharge on Monday, discharge today is reasonable. He did express some reluctance and concern of this weakness occurring again we agreed that we would perform an ambulatory trial and if tolerated well we would help to assist to expedite his PT eval. Patient did tolerate his ambulatory trial without difficulty. Case management following to help expedite his PT eval. Findings and plan for follow- up reviewed with patient. Patient agreeable and d/c'd per discharge instructions. Medication Reconcilliation Current Medication List: was personally reviewed by me Blood Pressure Screening Patient's blood pressure: Normal blood pressure Impression Primary Impression: Weakness generalized Additional Impression: Physical deconditioning Scribe Attestation The scribe's documentation has been prepared under my direction and personally reviewed by me in its entirety. I confirm that the note above accurately reflects all work, treatment, procedures, and medical decision making performed by me. Departure Information Dispostion Home / Self-Care Referrals Adi Osborne III, CRNP (PCP) Forms HOME CARE DOCUMENTATION FORM, IMPORTANT VISIT INFORMATION Patient Instructions ED Fall Dizziness Weakn Balance, Fatigue Manage, My [facility] Additional Instructions Please follow up with your primary care physician in the next 1-3 days for re- evaluation and continue with your plan for physical therapy evaluation. Our showcase trimmer will help facilitate physical therapy follow-up as discussed. Your labs showed liver slightly dehydrated. Otherwise, your exam, EKG, chest x-ray and lab results did not show signs of an emergent condition this time. Drink plenty of fluids to ensure hydration. Limit your activity as tolerated until fully evaluated by physical therapy and plan for physical activity is put in place. Return to the emergency department for worsening symptoms as described in the accompanying instructions. Problem Qualifiers
[2017-06-05 12:46] LABS: BLOOD UREA NITROGEN 15 mg/dl (7-18); BUN/CREATININE RATIO 19.6 (10-20); CALCIUM 9.4 mg/dl (8.5-10.1); CARBON DIOXIDE 26 mmol/L (21-32); CHLORIDE 104 mmol/L (98-107); CREATININE 0.76 mg/dl (0.60-1.40); GLUCOSE 188 mg/dl (70-99); MAGNESIUM 1.8 mg/dl (1.8-2.4); POTASSIUM 4.1 mmol/L (3.5-5.1); SODIUM 137 mmol/L (136-145)
[2017-06-05 12:51] LABS: PHOSPHORUS 2.3 mg/dl (2.5-4.9)
--- NOTE | 2017-06-05 12:54 | DIAGNOSTIC IMAGING REPORT ---
CHEST ONE VIEW PORTABLE CLINICAL HISTORY: 67 years-old Male presenting with CHEST PAIN. TECHNIQUE: Portable upright AP view of the chest was obtained. COMPARISON: 06/01/2017. FINDINGS: Cardiomediastinal silhouette normal. Lungs and pleural spaces clear. Osseous structures normal. Upper abdomen normal. IMPRESSION: 1. No acute cardiopulmonary disease. Electronically signed by: Jorge Connor M.D. 06/05/2017 12:52 PM Dictated Date/Time: 06/05/2017 12:52 PM
[2017-06-05 17:13] VITALS: BP 143/81; PULSE 80; O2SAT 97
== END 2017-06-05 17:31 | disposition home or self-care (01) ==
LOC: EDBD 11:47 → C.EDB 11:48
DX: M62.81 Muscle weakness (generalized) (principal); F32.9 Major depressive disorder, single episode, unspecified; E11.9 Type 2 diabetes mellitus without complications; K21.9 Gastro-esophageal reflux disease without esophagitis; E78.5 Hyperlipidemia, unspecified; I11.9 Hypertensive heart disease without heart failure; I05.9 Rheumatic mitral valve disease, unspecified; Z87.891 Personal history of nicotine dependence; Z79.82 Long term (current) use of aspirin; Z79.899 Other long term (current) drug therapy

== ENCOUNTER 2017-06-05 19:20 | Emergency (ER) | payer OTHER ==
[~2017-06-05] VITALS: Ht 185.4 cm; Wt 149.1 kg
[2017-06-05 19:27] VITALS: TEMP 37; Ht 185.4 cm; Wt 149.1 kg
--- NOTE | 2017-06-05 19:35 | EMERGENCY ROOM VISIT NOTE ---
History Report prepared by Ana: Bridgett Lemons Under the Supervision of: Dr. Claudy Tomlinson M.D. First contact with patient: 19:22 Chief Complaint: FALL Stated Complaint: FALLS History of Present Illness The patient is a 67 year old male who presents to the Emergency Room with complaints of multiple episodes of falls beginning this morning. The patient states that he was seen here this morning after an episode of a fall prior to arrival. He reports that he was feeling okay and left the ED 2 hours ago. He notes that when he was going into his house he fell up the stairs and banged his knee up. The patient states that his friends left the house and he was going to the bathroom when he reached for his cane and suddenly lost consciousness. He reports that he does not remember the fall but notes that he broke a lamp and the chair that he was sitting on fell over. He notes that he tried to get onto the couch but was not able to get off of the ground for 25 minutes and decided to call 911. The patient complains of thigh tightness and knee pain. He denies any head injury. Source of History: patient Onset: this morning Position: other (global) Quality: other (falls) Timing: intermittent Note: Pt complains of knee pain and thigh tightness. Review of Systems See HPI for pertinent positives & negatives. A total of 10 systems reviewed and were otherwise negative. 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 Social History Smoking Status: Former Smoker Alcohol Use: none Drug Use: none Marital Status: single Occupation Status: employed, retired Current/Historical Medications Scheduled Aspirin (Aspirin Ec), 81 MG PO DAILY Baclofen (Lioresal), 20 MG PO BID Buspirone Hcl (Buspirone Hcl), 7.5 MG PO BID Calcium Carbonate (Tums), 2 TAB PO PRN Cyclobenzaprine Hcl (Flexeril), 10 MG PO BID Insulin Glargine (Lantus), 46 UNITS SQ AMPM Insulin Human Lispro (Humalog Kwikpen), UNITS SQ TIDM Levothyroxine Sodium (Levothyroxine Sodium), 50 MCG PO QAM Lisinopril (Zestril), 20 MG PO QAM Melatonin (Melatonin), 5 MG PO HS Metformin Hcl (Glucophage), 1,000 MG PO BID Naproxen (Naprosyn), 500 MG PO Q12 Omeprazole (Prilosec), 20 MG PO QAM Pregabalin (Lyrica), 200 MG PO TID Rosuvastatin Calcium (Crestor), 40 MG PO DAILY Scheduled PRN Ibuprofen (Advil), 400 MG PO Q6 PRN for Headache or Pain Allergies Coded Allergies: Iodinated Diagnostic Agents (Verified Allergy, Severe, ANAPHYLAXIS, ) Iodine (Verified Allergy, Severe, ANAPHYLAXIS, 06/05/17) HAS EATEN SHELLFISH IN RECENT PAST W/O PROBLEM Physical Exam Vital Signs Date Time Temp Pulse Resp B/P (MAP) Pulse Ox O2 Delivery O2 Flow Rate FiO2 06/05/17 23:19 84 18 123/67 97 06/05/17 21:22 89 18 146/89 97 Room Air 06/05/17 19:27 37.0 98 18 162/97 97 Room Air Physical Exam GENERAL: Patient is a healthy-appearing well-nourished male HEAD: Normocephalic atraumatic EYES: Ocular movements intact pupils equal and react to light OROPHARYNX mucous membranes are moist no exudates present no erythema or edema present NECK: Supple no nuchal rigidity CHEST: Good equal expansion LUNGS: Clear and equal to auscultation CARDIAC: Normal S1 and S2 ABDOMEN: Soft nontender no guarding BACK: No CVA tenderness EXTREMITIES: No pain upon palpation, no clubbing cyanosis or edema, cannot stand up to stand on legs but is able to lift legs onto the bed NEURO: Patient is following commands and answering questions appropriately. Alert and oriented x3 Cranial Nerves 2-12 grossly intact Medical Decision & Procedures ER Provider Diagnostic Interpretation: Radiology results as stated below per my review and radiologist interpretation: RIGHT KNEE 2 VIEWS FINDINGS: There is a right total knee arthroplasty. The hardware appears intact. No significant periprosthetic lucency. Small knee effusion and anterior soft tissue swelling. There appears be lateral displacement/dislocation of the patella in relation to the femur. However this could also be due to the patient rotation. IMPRESSION: 1. No fractures within the right knee. 2. Possible lateral dislocation of the patella in relation to the femur. However, this could be positional. Clinical correlation recommended. 3. Anterior soft tissue swelling and a small knee effusion. Electronically signed by: Bautista Ivey M.D. 06/05/2017 8:57 PM Dictated Date/Time: 06/05/2017 8:55 PM LEFT KNEE 2 VIEWS FINDINGS: There is no fracture or dislocation. Soft tissues are unremarkable. There is a 9 mm linear metallic foreign body within the lateral suprapatellar subcutaneous fat. This may represent a small needle tip. Mild tricompartmental osteoarthritis most pronounced at the medial compartment. IMPRESSION: No fractures. There is a 9 mm linear metallic foreign body within the lateral suprapatellar subcutaneous fat. This may represent a small needle tip. Electronically signed by: Bautista Ivey M.D. 06/05/2017 8:59 PM Dictated Date/Time: 06/05/2017 8:57 PM PELVIS 1 OR 2 VIEW ROUTINE FINDINGS: No fracture or dislocation within the pelvis or hips. Lumbosacral spinal fusion hardware is again noted. Multiple pelvic phleboliths. Osteitis pubis remains unchanged. IMPRESSION: No change from the prior study. No acute fracture or dislocation within the pelvis or hips. Electronically signed by: Bautista Ivey M.D. 06/05/2017 8:55 PM Dictated Date/Time: 06/05/2017 8:53 PM ED Course 1921: Past medical records reviewed. The patient was evaluated in room B10. A complete history and physical examination was performed. 2121: I spoke to case management. The patient will be further evaluated at [facility]. 2140: Upon reexamination the patient is doing well. I discussed results and treatment plan with the patient. He verbalizes agreement and understanding. The patient will be evaluated for further management at [facility]. Medical Decision Differential diagnosis: Etiologies such as vasovagal event, infection, hypoglycemia, electrolyte abnormalities, cardiac sources, intracerebral event, toxicologic, neurologic, as well as others were entertained. This is a 67-year-old male that presents emergency department after multiple falls at home. The patient was just evaluated in the emergency department and was going to have outpatient physical therapy at home. X-rays do not show any evidence of acute fracture dislocation or subluxation. I did discuss the case with case management who is able to get the patient into [facility] for rehabilitation. Patient was in agreement with the treatment plan. Medication Reconcilliation Current Medication List: was personally reviewed by me Blood Pressure Screening Patient's blood pressure: Elevated blood pressure Blood pressure disposition: Elevated BP felt to be situational Impression Primary Impression: Multiple falls Scribe Attestation The scribe's documentation has been prepared under my direction and personally reviewed by me in its entirety. I confirm that the note above accurately reflects all work, treatment, procedures, and medical decision making performed by me. Departure Information Dispostion Discharge/Transfer to [facility] Referrals Adi Osborne III, CRNP (PCP) Patient Instructions My [facility] Additional Instructions Go directly to [facility] You have been examined and treated today on an emergency basis only. This is not a substitute for, or an effort to provide, complete comprehensive medical care. It is impossible to recognize and treat all injuries or illnesses in a single emergency department visit. It is therefore important that you follow up closely with your PCP. Call as soon as possible for an appointment. Thank you for your time and consideration. I look forward to speaking with you again soon. Please don't hesitate to call us if you have any questions.
--- NOTE | 2017-06-05 20:56 | DIAGNOSTIC IMAGING REPORT ---
PELVIS 1 OR 2 VIEW ROUTINE CLINICAL HISTORY: Pt c/o b/l knee pain. Fall. Pelvic pain. COMPARISON STUDY: Pelvis 02/11/2016. FINDINGS: No fracture or dislocation within the pelvis or hips. Lumbosacral spinal fusion hardware is again noted. Multiple pelvic phleboliths. Osteitis pubis remains unchanged. IMPRESSION: No change from the prior study. No acute fracture or dislocation within the pelvis or hips. Electronically signed by: Bautista Ivey M.D. 06/05/2017 8:55 PM Dictated Date/Time: 06/05/2017 8:53 PM
--- NOTE | 2017-06-05 20:58 | DIAGNOSTIC IMAGING REPORT ---
RIGHT KNEE 2 VIEWS HISTORY: Pt c/o rt knee pain Right COMPARISON: Right knee 05/05/2016. FINDINGS: There is a right total knee arthroplasty. The hardware appears intact. No significant periprosthetic lucency. Small knee effusion and anterior soft tissue swelling. There appears be lateral displacement/dislocation of the patella in relation to the femur. However this could also be due to the patient rotation. IMPRESSION: 1. No fractures within the right knee. 2. Possible lateral dislocation of the patella in relation to the femur. However, this could be positional. Clinical correlation recommended. 3. Anterior soft tissue swelling and a small knee effusion. Electronically signed by: Bautista Ivey M.D. 06/05/2017 8:57 PM Dictated Date/Time: 06/05/2017 8:55 PM
--- NOTE | 2017-06-05 21:00 | DIAGNOSTIC IMAGING REPORT ---
LEFT KNEE 2 VIEWS HISTORY: Pt c/o b/l knee pain COMPARISON: None. FINDINGS: There is no fracture or dislocation. Soft tissues are unremarkable. There is a 9 mm linear metallic foreign body within the lateral suprapatellar subcutaneous fat. This may represent a small needle tip. Mild tricompartmental osteoarthritis most pronounced at the medial compartment. IMPRESSION: No fractures. There is a 9 mm linear metallic foreign body within the lateral suprapatellar subcutaneous fat. This may represent a small needle tip. Electronically signed by: Bautista Ivey M.D. 06/05/2017 8:59 PM Dictated Date/Time: 06/05/2017 8:57 PM
[2017-06-05 23:19] VITALS: BP 123/67; PULSE 84; O2SAT 97
== END 2017-06-05 23:21 ==
LOC: EDBD 19:20 → C.EDB 19:21
DX: M25.561 Pain in right knee (principal); W10.9XXA Fall (on) (from) unspecified stairs and steps, initial encounter; W07.XXXA Fall from chair, initial encounter; Y92.009 Unspecified place in unspecified non-institutional (private) residence as the place of occurrence of the external cause; Z91.81 History of falling; M16.10 Unilateral primary osteoarthritis, unspecified hip; F32.9 Major depressive disorder, single episode, unspecified; E11.9 Type 2 diabetes mellitus without complications; K21.9 Gastro-esophageal reflux disease without esophagitis; E78.5 Hyperlipidemia, unspecified; Z87.891 Personal history of nicotine dependence; Z79.2 Long term (current) use of antibiotics; Z79.4 Long term (current) use of insulin; Z79.899 Other long term (current) drug therapy; M62.81 Muscle weakness (generalized); I11.9 Hypertensive heart disease without heart failure; I05.9 Rheumatic mitral valve disease, unspecified; Z79.82 Long term (current) use of aspirin

== ENCOUNTER → 2017-07-10 | Outpatient (CLI) | payer OTHER ==
[2017-07-10 09:44] LABS: HEMATOCRIT 44.2 % (42-52); MEAN CELL VOLUME 89.1 fL (80-100); MEAN CORPUSCULAR HGB CONC 33.7 g/dl (32-36); MEAN PLATELET VOLUME 12.7 fL (7.4-10.4); PLATELET COUNT 168 K/uL (130-400); RED BLOOD COUNT 4.96 M/uL (4.7-6.1)
[2017-07-10 10:04] LABS: ESTIMATED AVERAGE GLUCOSE 154 mg/dl; HA1C FLAG Normal (Normal)
[2017-07-10 10:06] LABS: ALT/SGPT 28 U/L (12-78); AST/SGOT 19 U/L (15-37); BLOOD UREA NITROGEN 15 mg/dl (7-18); BUN/CREATININE RATIO 17.6 (10-20); CALCIUM 9.5 mg/dl (8.5-10.1); CARBON DIOXIDE 28 mmol/L (21-32); CHLORIDE 105 mmol/L (98-107); CHOLESTEROL 108 mg/dl (0-200); CREATININE 0.85 mg/dl (0.60-1.40); GLUCOSE 139 mg/dl (70-99); POTASSIUM 4.4 mmol/L (3.5-5.1); SODIUM 140 mmol/L (136-145); TRIGLYCERIDES 102 mg/dl (0-150); VERY LOW DENSITY LIPOPROT CALC 20 mg/dl
[2017-07-10 10:24] LABS: ALB/GLOB RATIO 1.2 (0.9-2); ALKALINE PHOSPHATASE 77 U/L (45-117); CHOLESTEROL/HDL RATIO 2.6; HDL CHOLESTEROL 41 mg/dl; LDL CHOLESTEROL CALCULATED 47 mg/dl
[2017-07-10 16:49] LABS: RATIO 11.8 mcg/mg (0-30.0)
== END | disposition home or self-care (01) ==
LOC: C.LAB 08:54
PROVIDERS: ATTEND Nurse Practitioner Adult Health
DX: E11.49 Type 2 diabetes mellitus with other diabetic neurological complication (principal); E78.5 Hyperlipidemia, unspecified; E03.9 Hypothyroidism, unspecified; I10 Essential (primary) hypertension

== ENCOUNTER → 2017-11-02 | Outpatient (CLI) | payer OTHER ==
[~2017-11-02] MED LIST changes: +NAPR1TAB48 PO; -NAPR250T2 PO
[2017-11-02 12:09] LABS: BASO % 0.5 %; BASO ABS # 0.03 K/uL (0-0.2); EOS % 1.6 %; HEMATOCRIT 41.7 % (42-52); HEMOGLOBIN 14.2 g/dL (14.0-18.0); IG# 0.01 K/uL (0.00-0.02); LYMPH % 29.3 %; MEAN CELL VOLUME 91.2 fL (80-100); MEAN CORPUSCULAR HEMOGLOBIN 31.1 pg (25-34); MEAN CORPUSCULAR HGB CONC 34.1 g/dl (32-36); MEAN PLATELET VOLUME 12.4 fL (7.4-10.4); MONO % 8.5 %; MONO ABS # 0.52 K/uL (0.11-0.59); NEUT % 59.9 %; NEUT ABS # 3.69 K/uL (1.4-6.5); PLATELET COUNT 177 K/uL (130-400); RED CELL DISTRIBUTION WIDTH CV 12.7 % (11.5-14.5); WHITE BLOOD COUNT 6.15 K/uL (4.8-10.8)
[2017-11-02 12:45] LABS: ALBUMIN 3.9 gm/dl (3.4-5.0); ALKALINE PHOSPHATASE 76 U/L (45-117); ALT/SGPT 31 U/L (12-78); AST/SGOT 20 U/L (15-37); BLOOD UREA NITROGEN 14 mg/dl (7-18); CARBON DIOXIDE 27 mmol/L (21-32); CHOLESTEROL 132 mg/dl (0-200); CREATININE 0.75 mg/dl (0.60-1.40); GLUCOSE 103 mg/dl (70-99); POTASSIUM 4.1 mmol/L (3.5-5.1); SODIUM 138 mmol/L (136-145)
[2017-11-02 12:58] LABS: LDL CHOLESTEROL CALCULATED 64 mg/dl; TOTAL PROTEIN 7.3 gm/dl (6.4-8.2)
[2017-11-02 13:55] LABS: HEMOGLOBIN A1C 7.4 % (4.5-5.6)
== END | disposition home or self-care (01) ==
LOC: C.LAB 10:04
PROVIDERS: ATTEND Nurse Practitioner Adult Health
DX: Z00.00 Encounter for general adult medical examination without abnormal findings (principal); E78.5 Hyperlipidemia, unspecified; E11.49 Type 2 diabetes mellitus with other diabetic neurological complication; Z79.4 Long term (current) use of insulin; K21.0 Gastro-esophageal reflux disease with esophagitis; E03.9 Hypothyroidism, unspecified

== ENCOUNTER → 2018-01-25 | Outpatient (CLI) | payer OTHER ==
--- NOTE | 2018-01-25 11:12 | DIAGNOSTIC IMAGING REPORT ---
L-SPINE MIN 4 VIEWS ROUTINE HISTORY: Pain M25.551 Pain of both hip joints COMPARISON: None. FINDINGS: There is no fracture. No subluxation. Findings of posterior laminectomy and fusion from L4 through S1. Hardware is intact. Disc spaces are present at L4-L5 and L5-S1. Mild degenerative change of the vertebral endplates as well as intervertebral discs throughout the remainder of the lumbar region. No acute process. No compression deformity. IMPRESSION: Mild degenerative change as well as a postoperative change of the low lumbar spine. No acute process. The above report was generated using voice recognition software. It may contain grammatical, syntax or spelling errors. Electronically signed by: Phan Shaw M.D. 01/25/2018 11:10 AM Dictated Date/Time: 01/25/2018 11:09 AM
--- NOTE | 2018-01-25 11:16 | DIAGNOSTIC IMAGING REPORT ---
PELVIS/BILATERAL HIP 2 VIEWS CLINICAL HISTORY: M25.551 Pain of both hip joints pain COMPARISON STUDY: None FINDINGS: Mild degenerative change of the hips bilaterally. Mild narrowing of the joint spaces. Mild sclerosis of the superior acetabular margins. No evidence for acetabular protrusion. Mild degenerative change symphysis pubis. Postoperative changes low lumbar spine. Sacral foramina are symmetric. IMPRESSION: Minimal/mild degenerative change at both hips. Mild degenerative change symphysis pubis. No acute process. The above report was generated using voice recognition software. It may contain grammatical, syntax or spelling errors. Electronically signed by: Phan Shaw M.D. 01/25/2018 11:14 AM Dictated Date/Time: 01/25/2018 11:13 AM
== END | disposition home or self-care (01) ==
LOC: C.RAD 10:42
PROVIDERS: ATTEND Nurse Practitioner Family
DX: M25.551 Pain in right hip (principal); M25.552 Pain in left hip

== ENCOUNTER → 2018-04-13 | Outpatient (CLI) | payer OTHER ==
[2018-04-13 12:27] LABS: HEMOGLOBIN A1C 7.9 % (4.5-5.6)
== END | disposition home or self-care (01) ==
LOC: C.LAB 10:10
PROVIDERS: ATTEND Nurse Practitioner Adult Health
DX: E11.49 Type 2 diabetes mellitus with other diabetic neurological complication (principal)

== ENCOUNTER 2024-10-24 12:04 | Inpatient (IN) ==
--- NOTE | 2024-10-24 12:48 | Emergency Department Note ---
Impression & Plan COVID-19, Lightheadedness, Nausea & vomiting, Near syncope ED Provider Note HISTORY OF PRESENT ILLNESS: Patient is a 74-year-old male presenting with lightheadedness, nausea and diffuse bodyaches. Patient reports that he has been feeling generally unwell for the last 2 hours. He reports that he was getting up and getting breakfast around when he suddenly became very dizzy and lightheaded like he was going to pass out. He reports he was able to get to his bedroom and sit on his bed and started to dry heave and vomit. He states that he continued to stumble into the bathroom and continued to dry heave. He states he feels very weak. He denies any chest pain or shortness of breath. He is not wear any supplemental oxygen at home. He reports that secondary to his lightheadedness he was stumbling over himself and fell into a desk. However, he denies striking his head or loss of consciousness. He is not on any anticoagulation. He denies abdominal pain or extremity pain. He reports an isolated history of DVT after a back surgery. He is on a baby aspirin daily. He denies any recent fevers. He was seen in the emergency department 3 days ago and diagnosed with COVID. ROS: as above PHYSICAL EXAM: Constitutional: Patient appears in no acute distress. HENT: Head: Normocephalic and atraumatic. Eyes: EOMI, PERRL Mouth/Throat: Mucous membranes moist. Neck: Trachea midline. Neck supple. Cardiovascular: RRR, No murmurs, rubs or gallops. Intact distal pulses. Pulmonary/Chest: No respiratory distress. Breath sounds clear and equal bilaterally. No wheezes or rales. Abdominal: Abdomen soft, no tenderness, rebound or guarding. Musculoskeletal: No edema, tenderness or deformity noted. Skin: Warm and dry. No rash, erythema, pallor or cyanosis Psychiatric: Appropriate mood and affect for situation. Neurological: Alert and keenly responsive. CN II-XII grossly intact, moving all extremities equally and fully. MDM: - Vitals signs showed hypertension and hypoxia. Patient was placed on 2 L nasal cannula. - History obtained via patient. History as above. - Chronic conditions affecting care: hypothyroidism; DM-2; HTN; GERD; anxiety/depression; HLD - Differential diagnoses include, but are not limited to: CVA; intracranial hemorrhage; ACS; dysrhythmia; viral syndrome; electrolyte abnormality; UTI; pneumonia - Order placed for continuous cardiac monitoring. At this time, monitor showed rate of 72 bpm with normal sinus rhythm, per my interpretation. - External medical records reviewed. Wellness visit note dated 08/08/2024 was reviewed. Patient was seen for their annual wellness examination. - EKG interpreted by myself showed normal sinus rhythm. Rate 80 bpm. QT 390. No acute ischemic changes. - Laboratory workup interpreted by myself showed leukopenia (WBC 4.64); normal PT/INR; stable electrolytes; normal troponin; normal BNP; hyperglycemia (glucose 146) without evidence of DKA - UA negative for infection - Viral respiratory panel positive for influenza A - CXR negative for pneumonia, per my interpretation - Patient has anaphylaxis to iodine contrast and was given 40 mg IV Solu-Medrol and 50 mg IV Benadryl for pretreatment in order to obtain a CT scan. - CT PE negative for PE - Patient was initially requiring oxygen in the ER, but he was weaned to room air. - Given 4 mg IV zofran, 1g IV tylenol and 1L NS in ER. - Discussed results with patient. Unclear etiology for his dizziness or lightheadedness other than his viral illness. Discussed discharge with the patient, but he feels unsafe to go home and is nervous with his continued episodes of lightheadedness with position changes. Will escalate care to admission for observation. - Discussion was had with rehabilitation caseworker about patient's case and need for admission - Hospitalist consulted for admission - [facility] and [facility]. 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) Vitamin D deficiency (Chronic) Uncontrolled type 2 diabetes mellitus with neurologic complication, with long- term current use of insulin (Chronic) Stenosis, cervical spine (Chronic) Sensory ataxia (Chronic) Osteoarthritis of knee (Chronic) Obesity, morbid, BMI 40.0-49.9 (Chronic) Mitral valve disorder (Chronic) Hypothyroidism (Chronic) Benign essential hypertension (Chronic) Other and unspecified hyperlipidemia (Chronic) Heart disease, unspecified (Chronic) Chronic gastroesophageal reflux disease (Chronic) Diabetic peripheral neuropathy associated with type 2 diabetes mellitus (Chronic) Depressive disorder, not elsewhere classified (Chronic) Chronic reflux esophagitis (Chronic) Anxiety (Chronic) Allergic rhinitis (Chronic) History of back surgery Cervical spine arthritis Cervical radiculopathy Medical History (Updated 10/24/24 @ 15:48 by Alexa Becerra MD) Fracture of right distal radius Popliteal cyst Right arm pain History of pericarditis 12-14 YR AGO, HX ANGIOPLASTY...FOLLOWED DR DICK...NO LONGER FOLLOWS History of panic attacks Hyperlipidemia HTN (hypertension) Acid reflux Hypothyroid Diabetes Chronic constipation HX Basal cell carcinoma HX Deep vein thrombosis of proximal lower extremity S/P BACK SX 5 YR AGO Renal failure HX OF 5 YR AGO, D/T DEHYDRATION AND USE OF METFORMIN PRIOR TO SURGERY - NO ISSUES SINCE/MOST RECENT KIDNEY LAB WORK WNL PER PT Surgical History Epidermal cyst (10/04/22) In office 10/04/2022 Dr. Nguyen FINAL DIAGNOSIS Skin, right back (excision): - Epidermal cyst. History of angioplasty History of colonoscopy History of total right knee replacement History of carpal tunnel surgery RIGHT Hx of arthroscopy of knee RIGHT H/O spinal fusion (~01/20/14) Family History Father Black lung disease Diabetes Mother Cerebral arteriosclerosis Diabetes Goiter Other Stroke Denies family history of Ovarian cancer Prostate cancer Myocardial infarction Breast cancer Colorectal cancer Social History (Updated 08/08/24 @ 11:16 by PATRICIO Aguilera) Smoking Status: Never smoker packs per day: 0; Second Hand Exposure: No; Do You Dip or Chew Tobacco: No; Hx Alcohol Use: Yes Alcohol type: beer and wine Alcohol Intake Frequency: Monthly or Less Hx Substance Use: No Preferred Language: Nigerian Communication Ability: Effective Visual Impairment: Limited Hearing Ability: Normal Installation Helper Required: No Beliefs That Will Affect Care: None marital status: Single Current Living Situation: Alone current occupational status: retired How many Children do You have: 0 Feels Safe at Home: Yes Childhood Exposure to Second-Hand Smoke: No Diet: diabetic caffeine: Yes during the past year weight has: decreased > 10 lbs Dental Care, Regularly: Yes Physical Activity Frequency: Daily Seatbelt Use: always Sunscreen Use: Yes Assistive Devices: Cane and Glasses Allergies Allergies Allergy/AdvReac Type Severity Reaction Status Date / Time Iodinated Contrast Media Allergy Severe ANAPHYLAXIS Verified 08/26/24 10:22 iodine Allergy Severe ANAPHYLAXIS Verified 08/26/24 10:22 Home Meds Home Medications Medication Instructions Recorded Confirmed aspirin 81 mg tablet 81 mg PO DAILY #90 tabs 07/05/19 08/26/24 melatonin 10 mg tablet 10 mg PO HS PRN Sleep 09/05/19 08/26/24 cholecalciferol (vitamin D3) 125 125 mcg PO DAILY 08/24/21 08/26/24 mcg (5,000 unit) tablet (Vitamin D3) Previous Rx's Medication Instructions Recorded Diabetic Shoes #1 ea 06/04/19 Walking Cane #1 ea 11/12/21 loratadine 10 mg tablet 10 mg PO DAILY PRN allergy 05/10/23 symptoms #30 tabs sildenafil 100 mg tablet 50 - 100 mg (0.5 - 1 x 100 mg) PO 09/12/23 DAILY PRN sexual activity #8 tabs levothyroxine 50 mcg tablet 50 mcg PO QAM #90 tabs 12/13/23 lisinopril 20 mg tablet 20 mg PO QAM #90 tabs 01/09/24 Lantus Solostar U-100 Insulin 100 46 unit (0.46 mL) subcut BID #90 mL 01/10/24 unit/mL (3 mL) subcutaneous pen (insulin glargine) blood-glucose meter (Accu-Chek #1 ea 01/22/24 Guide Glucose Meter) BD Ultra-Fine Short Pen Needle 31 #500 ea 02/09/24 gauge x 02/07" (pen needle, diabetic) metformin 500 mg tablet See Rx Instructions .Route 02/09/24 .COMPLEX #360 tabs methocarbamol 750 mg tablet 750 mg PO TID PRN Muscle cramping 02/20/24 #30 tabs blood sugar diagnostic (Accu-Chek #100 ea 03/26/24 Guide test strips) buspirone 7.5 mg tablet 7.5 mg PO BID #180 tabs 04/08/24 meloxicam 7.5 mg tablet 7.5 mg PO BID PRN pain #180 tabs 04/24/24 omeprazole 20 mg capsule,delayed 20 mg PO DAILY #90 caps 05/28/24 release rosuvastatin 40 mg tablet 40 mg PO QAM #90 tabs 05/28/24 abaloparatide (Tymlos) 80 mcg (0.04 mL) subcut DAILY 05/29/24 #1.56 mL insulin aspart U-100 100 unit/mL See Rx Instructions .Route 08/16/24 (3 mL) subcutaneous pen (Novolog .COMPLEX #45 mL FlexPen U-100 Insulin aspart) pregabalin 200 mg capsule (Lyrica) 200 mg PO TID 30 days #90 caps 08/26/24 semaglutide 1 mg/dose (4 mg/3 mL) 1 mg (0.75 mL) subcut .weekly #3 mL 08/26/24 subcutaneous pen injector (Ozempic) amoxicillin 875 mg-potassium 1 tab PO BID 10 days #20 tabs 10/22/24 clavulanate 125 mg tablet ondansetron 4 mg disintegrating 4 mg PO Q6H PRN nausea and 10/22/24 tablet vomiting #15 tabs Results & Data (ED) Vital Signs Vital Signs - 24 hr 10/24/24 12:08 10/24/24 12:14 10/24/24 12:19 Temperature 36.5 C Temperature Source Oral Pulse Rate 66 Pulse Rate [Apical] 77 Pulse Rate from SpO2 Sensor Respiratory Rate 20 20 Respiratory Effort / Characteristics Non-Labored Spontaneous Respiratory Depth Normal Normal Respiratory Pattern Regular Blood Pressure 177/89 H Blood Pressure [Left Arm] 177/89 H Blood Pressure Mean 118 Blood Pressure Mean [Left Arm] 118 Pulse Oximetry 93 87 L 87 L Oxygen Delivery Method Room Air Room Air Nasal Cannula Oxygen Flow Rate Sepsis Recent Fever Within 48 Hours No Sepsis New/Unexplained Change in Mental Status No Sepsis Action Taken by Nursing No Action Required Oxygen Flow Rate - Titration 3 Pulse Oximetry Post Tiitration 95 10/24/24 12:24 10/24/24 12:33 10/24/24 12:39 Temperature Temperature Source Pulse Rate 76 72 73 Pulse Rate [Apical] Pulse Rate from SpO2 Sensor 78 72 Respiratory Rate 13 19 Respiratory Effort / Characteristics Respiratory Depth Respiratory Pattern Blood Pressure Blood Pressure [Left Arm] Blood Pressure Mean Blood Pressure Mean [Left Arm] Pulse Oximetry 97 95 Oxygen Delivery Method Oxygen Flow Rate Sepsis Recent Fever Within 48 Hours Sepsis New/Unexplained Change in Mental Status Sepsis Action Taken by Nursing Oxygen Flow Rate - Titration Pulse Oximetry Post Tiitration 10/24/24 12:45 10/24/24 12:47 10/24/24 12:54 Temperature Temperature Source Pulse Rate 78 72 72 Pulse Rate [Apical] Pulse Rate from SpO2 Sensor 76 74 Respiratory Rate 18 14 Respiratory Effort / Characteristics Respiratory Depth Respiratory Pattern Blood Pressure Blood Pressure [Left Arm] Blood Pressure Mean Blood Pressure Mean [Left Arm] Pulse Oximetry 97 96 97 Oxygen Delivery Method Nasal Cannula Oxygen Flow Rate 3 Sepsis Recent Fever Within 48 Hours Sepsis New/Unexplained Change in Mental Status Sepsis Action Taken by Nursing Oxygen Flow Rate - Titration Pulse Oximetry Post Tiitration 10/24/24 13:00 10/24/24 13:00 10/24/24 13:06 Temperature Temperature Source Pulse Rate 62 Pulse Rate [Apical] Pulse Rate from SpO2 Sensor 66 Respiratory Rate 18 Respiratory Effort / Characteristics Respiratory Depth Respiratory Pattern Blood Pressure 160/94 H 160/94 H Blood Pressure [Left Arm] Blood Pressure Mean 105 105 Blood Pressure Mean [Left Arm] Pulse Oximetry 93 Oxygen Delivery Method Oxygen Flow Rate Sepsis Recent Fever Within 48 Hours Sepsis New/Unexplained Change in Mental Status Sepsis Action Taken by Nursing Oxygen Flow Rate - Titration Pulse Oximetry Post Tiitration 10/24/24 13:12 10/24/24 13:21 10/24/24 13:30 Temperature Temperature Source Pulse Rate 61 66 71 Pulse Rate [Apical] Pulse Rate from SpO2 Sensor 61 70 77 Respiratory Rate 16 19 Respiratory Effort / Characteristics Respiratory Depth Respiratory Pattern Blood Pressure Blood Pressure [Left Arm] Blood Pressure Mean Blood Pressure Mean [Left Arm] Pulse Oximetry 94 96 98 Oxygen Delivery Method Oxygen Flow Rate Sepsis Recent Fever Within 48 Hours Sepsis New/Unexplained Change in Mental Status Sepsis Action Taken by Nursing Oxygen Flow Rate - Titration Pulse Oximetry Post Tiitration 10/24/24 13:31 10/24/24 13:31 10/24/24 13:51 Temperature Temperature Source Pulse Rate 75 Pulse Rate [Apical] Pulse Rate from SpO2 Sensor Respiratory Rate 15 Respiratory Effort / Characteristics Respiratory Depth Respiratory Pattern Blood Pressure 170/75 H 170/75 H Blood Pressure [Left Arm] Blood Pressure Mean 86 86 Blood Pressure Mean [Left Arm] Pulse Oximetry Oxygen Delivery Method Oxygen Flow Rate Sepsis Recent Fever Within 48 Hours Sepsis New/Unexplained Change in Mental Status Sepsis Action Taken by Nursing Oxygen Flow Rate - Titration Pulse Oximetry Post Tiitration 10/24/24 14:03 10/24/24 14:06 10/24/24 14:07 Temperature Temperature Source Pulse Rate 67 68 Pulse Rate [Apical] Pulse Rate from SpO2 Sensor Respiratory Rate 12 12 Respiratory Effort / Characteristics Respiratory Depth Respiratory Pattern Blood Pressure 165/83 H Blood Pressure [Left Arm] Blood Pressure Mean 121 Blood Pressure Mean [Left Arm] Pulse Oximetry Oxygen Delivery Method Oxygen Flow Rate Sepsis Recent Fever Within 48 Hours Sepsis New/Unexplained Change in Mental Status Sepsis Action Taken by Nursing Oxygen Flow Rate - Titration Pulse Oximetry Post Tiitration 10/24/24 14:12 10/24/24 14:18 10/24/24 14:21 Temperature Temperature Source Pulse Rate 68 72 Pulse Rate [Apical] 73 Pulse Rate from SpO2 Sensor 69 70 Respiratory Rate 16 20 13 Respiratory Effort / Characteristics Respiratory Depth Respiratory Pattern Blood Pressure Blood Pressure [Left Arm] 165/83 H Blood Pressure Mean Blood Pressure Mean [Left Arm] 110 Pulse Oximetry 99 100 100 Oxygen Delivery Method Room Air Oxygen Flow Rate Sepsis Recent Fever Within 48 Hours Sepsis New/Unexplained Change in Mental Status Sepsis Action Taken by Nursing Oxygen Flow Rate - Titration Pulse Oximetry Post Tiitration Laboratory Data 10/24/24 12:13 10/24/24 12:13 Lab Results 10/24/24 10/24/24 10/24/24 Range/Units 12:13 12:53 14:05 WBC 4.64 L (4.8-10.8) K/ul RBC 4.29 L (4.70-6.10) M/uL Hgb 13.6 L (14.0-18.0) g/dl Hct 38.7 L (42.0-52.0) % MCV 90.2 (80.0-100.0) fL MCH 31.7 (25.0-34.0) pg MCHC 35.1 (32.0-36.0) g/dL RDW Std Deviation 38.9 (36.4-46.3) fL RDW Coeff of Clarke 11.8 (11.5-14.5) % Plt Count 145 (130-400) K/uL MPV 12.9 H (9.4-12.4) fL Immature Gran % (Auto) 0.6 % Neut % (Auto) 62.1 % Lymph % (Auto) 18.1 % [place] % (Auto) 15.1 % Eos % (Auto) 3.2 % Baso % (Auto) 0.9 % Neut # (Auto) 2.88 (1.40-6.50) K/uL Lymph # (Auto) 0.84 L (1.20-3.40) K/uL [place] # (Auto) 0.70 H (0.11-0.59) K/uL Eos # (Auto) 0.15 (0.00-0.50) K/uL Baso # (Auto) 0.04 (0.00-0.20) K/uL Immature Gran # (Auto) 0.03 (0.01-0.20) K/uL PT 10.9 (9.0-12.0) Seconds INR 1.0 (0.9-1.1) Sodium 138 (136-145) mmol/L Potassium 3.9 (3.5-5.1) mmol/L Chloride 105 (98-107) mmol/L Carbon Dioxide 25 (21-32) mmol/L Anion Gap 8 (3-11) BUN 22 (6-23) mg/dl Creatinine 0.73 (0.6-1.4) mg/dl Est Cr Clr Drug Dosing 134.0 ml/min eGFR 96.67 BUN/Creatinine Ratio 30.1 H (10-20) Glucose 146 H (70-99(Fasting)) mg/dl Calcium 9.5 (8.6-10.3) mg/dl Magnesium 1.7 (1.7-2.4) mg/dl Total Bilirubin 0.5 (0.2-1.0) mg/dl AST 30 (13-39) U/L ALT 30 (7-52) U/L Alkaline Phosphatase 66 (34-104) U/L Troponin I High Sens 4.5 (0-20) pg/ml B-Natriuretic Peptide 12 (0-100) pg/ml Total Protein 7.2 (6.0-8.3) gm/dl Albumin 4.2 (3.4-5.0) gm/dl Globulin 3.0 (2.5-4.0) gm/dl Albumin/Globulin Ratio 1.4 (0.9-2) Urine Color Dark Yellow Urine Appearance Clear (Clear) Urine pH 7.0 (4.5-7.5) Ur Specific [place] 1.035 H (1.000-1.030) Urine Protein 1+ H (Negative) Urine Glucose (UA) Negative (Negative) Urine Ketones Trace H (Negative) Urine Blood Negative (Negative) Urine Nitrite Negative (Negative) Urine Bilirubin Negative (Negative) Urine Urobilinogen Negative (Negative) Ur Leukocyte Esterase Negative (Negative) Urine WBC (Auto) 0-5 (0-5) /hpf Urine RBC (Auto) 0-2 (0-2) /hpf U Hyaline Cast (Auto) 0-2 (0-2) /lpf U Epithel Cells (Auto) 0-2 (0-2) /hpf Urine Bacteria (Auto) None Seen (None Seen) Adenovirus (PCR) Not Detected (NotDetected) B. pertussis DNA (PCR) Not Detected (NotDetected) B.parapertussis DNA PCR Not Detected (NotDetected) C. pneumoniae DNA (PCR) Not Detected (NotDetected) Coronavirus OC43 (PCR) Not Detected (NotDetected) Coronavirus HKU1 (PCR) Not Detected (NotDetected) Coronavirus 229E (PCR) Not Detected (NotDetected) SARS-CoV-2 (PCR) DETECTED A (NotDetected) Coronavirus NL63 (PCR) Not Detected (NotDetected) Human Metapneumovir PCR Not Detected (NotDetected) Influenza Type A (PCR) Not Detected (NotDetected) Influenza Type B (PCR) Not Detected (NotDetected) M. pneumoniae (PCR) Not Detected (NotDetected) Parainfluenza 1 (PCR) Not Detected (NotDetected) Parainfluenza 2 (PCR) Not Detected (NotDetected) Parainfluenza 3 (PCR) Not Detected (NotDetected) Parainfluenza 4 (PCR) Not Detected (NotDetected) RSV (PCR) Not Detected (NotDetected) Entero/Rhino (PCR) Not Detected (NotDetected) Administered Medications Discontinued Medications Diphenhydramine HCl (Diphenhydramine 50 Mg/Ml Vial) 50 mg IV NOW STA Stop: 10/24/24 13:32 Last Admin: 10/24/24 13:36 Dose: 50 mg Documented By: ANGELIQUE Sodium Chloride (Nss) 1,000 mls @ 999 mls/hr IV .Q1H1M ONE Stop: 10/24/24 13:48 Last Infusion: 10/24/24 14:38 Dose: Infused Documented By: Admin: 10/24/24 12:52 Dose: 999 mls/hr Documented By: ANGELIQUE Acetaminophen (Ofirmev) 1,000 mg in 100 mls @ 400 mls/hr IV NOW STA Stop: 10/24/24 13:02 Last Infusion: 10/24/24 13:24 Dose: Infused Documented By: Admin: 10/24/24 12:53 Dose: 400 mls/hr Documented By: ANGELIQUE Ioversol (Optiray 320 125ml) 115 ml IV ONCE ONE Stop: 10/24/24 14:41 Last Admin: 10/24/24 14:41 Dose: 115 ml Documented By: DARRELL Methylprednisolone (Methylprednisolone 125 Mg/2 Ml Vial) 40 mg IV NOW STA Stop: 10/24/24 13:32 Last Admin: 10/24/24 13:36 Dose: 40 mg Documented By: ANGELIQUE Ondansetron HCl (Ondansetron Inj 2 Mg/Ml 2 Ml Vial) 4 mg IV NOW STA Stop: 10/24/24 12:49 Last Admin: 10/24/24 12:53 Dose: 4 mg Documented By: ANGELIQUE Imaging Data Radiologist's Impression: Chest X-Ray 10/24/24 12:43 XR chest 1V portable CLINICAL HISTORY: Dyspnea COMPARISON STUDY: 10/22/2024 FINDINGS: Heart size and pulmonary vasculature are normal. No effusion, consolidation, or pneumothorax. IMPRESSION: No acute findings. ACT 112: Negative or not required by law. Electronically signed by: Red Lo M.D. 10/24/2024 1:26 PM Chest CTA 10/24/24 13:31 CT angio chest PE protocol CT DOSE: 914.05 mGy.cm HISTORY: PE. Near syncope TECHNIQUE: Multiple CTA images of the chest were obtained after the intravenous administration of 150 ml Optiray. Coronal and sagittal MIPS were obtained from the axial data set and were submitted for review. A dose lowering technique was utilized adhering to the principles of ALARA. COMPARISON STUDY: None FINDINGS: There is no evidence of pulmonary embolism. There is no infiltrate or pleural effusion. There is bibasilar interstitial change with subpleural sparing which can be associated with NSIP. The lung dorman otherwise clear. Is no pleural effusion. There is no adenopathy. There is no aortic aneurysm or pericardial effusion. There is moderate coronary artery calcification. The upper abdominal images are noncontributory. IMPRESSION: No evidence of pulmonary embolism ACT 112: Negative or not required by law. The above report was generated using voice recognition software. It may contain grammatical, syntax or spelling errors. Electronically signed by: Taylor Mazariegos M.D. 10/24/2024 2:58 PM Discharge Plan Visit Data Chief Complaint: Illness ED Provider: Alexa Becerra Discharge Problem: COVID-19, Lightheadedness, Nausea & vomiting, Near syncope Forms Stand Alone Forms: [facility] [employer] Prescriptions Prescriptions: No Action (DME) Diabetic Shoes [facility] See Dose Instructions .ROUTE .MEDSUPPLY Qty: 1 0RF Dose Instruction: As directed Rx Instructions: As directed. 1 pair. Length of Need: 99 (DME) Walking Cane [facility] See Rx Instructions .Route Qty: 1 0RF Rx Instructions: As directed sildenafil 100 mg tablet 50 - 100 mg PO DAILY PRN (Reason: sexual activity) Qty: 8 5RF Rx Instructions: Take 1/2 to 1 tablet 1 hour before intercourse levothyroxine 50 mcg tablet 50 mcg PO QAM Qty: 90 3RF lisinopril 20 mg tablet 20 mg PO QAM Qty: 90 3RF insulin glargine [Lantus Solostar U-100 Insulin] 100 unit/mL (3 mL) insulin pen 46 unit SQ BID Qty: 90 3RF (DME) blood-glucose meter [Accu-Chek Guide Glucose Meter] [facility] See Rx Instructions .Route Qty: 1 0RF Rx Instructions: Use 3 times a day and as needed metformin 500 mg tablet See Rx Instructions .ROUTE .COMPLEX Qty: 360 3RF Dose Instruction: TAKE 2 TABLETS BY MOUTH TWO TIMES DAILY Rx Instructions: TAKE 2 TABLETS BY MOUTH TWO TIMES DAILY (DME) pen needle, diabetic [BD Ultra-Fine Short Pen Needle] 31 gauge x 5/16" needle See Rx Instructions .ROUTE .COMPLEX Qty: 500 3RF Dose Instruction: TEST BLOOD SUGAR 5 TIMES A DAY Rx Instructions: TEST BLOOD SUGAR 5 TIMES A DAY methocarbamol 750 mg tablet 750 mg PO TID PRN (Reason: Muscle cramping) Qty: 30 0RF (DME) Accu-Chek Guide test strips Strip See Rx Instructions .Route Qty: 100 5RF Rx Instructions: Use 3 times daily and as needed buspirone 7.5 mg tablet 7.5 mg PO BID Qty: 180 3RF meloxicam 7.5 mg tablet 7.5 mg PO BID PRN (Reason: pain) Qty: 180 3RF rosuvastatin 40 mg tablet 40 mg PO QAM Qty: 90 3RF omeprazole 20 mg capsule,delayed release(DR/EC) 20 mg PO DAILY Qty: 90 3RF insulin aspart U-100 [Novolog FlexPen U-100 Insulin] 100 unit/mL (3 mL) insulin pen See Rx Instructions .ROUTE .COMPLEX Qty: 45 1RF Dose Instruction: INJECT 1 SLIDING SCALE DOSE SUBCUTANEOUSLY (UNDER THE SKIN) THREE TIMES DAILY WITH MEALS. MAXIMUM DAILY DOSE: 115 UNITS VIA SLIDING SCALE Rx Instructions: INJECT 1 SLIDING SCALE DOSE SUBCUTANEOUSLY (UNDER THE SKIN) THREE TIMES DAILY WITH MEALS. MAXIMUM DAILY DOSE: 115 UNITS VIA SLIDING SCALE Ozempic 1 mg/dose (4 mg/3 mL) pen injector 1 mg subcut .weekly Qty: 3 5RF Rx Instructions: Monday pregabalin [Lyrica] 200 mg capsule 200 mg PO TID 30 Days Qty: 90 2RF aspirin 81 mg tablet 81 mg PO DAILY Qty: 90 melatonin 10 mg tablet 10 mg PO HS PRN (Reason: Sleep) loratadine 10 mg tablet 10 mg PO DAILY PRN (Reason: allergy symptoms) Qty: 30 0RF Tymlos 80 mcg (3,120 mcg/1.56 mL) pen injector 80 mcg subcut DAILY Qty: 1.56 2RF Rx Instructions: inject into abdomen; do not inject within 2 inches of belly button/navel; rotate sites cholecalciferol (vitamin D3) [Vitamin D3] 125 mcg (5,000 unit) Tablet 125 mcg PO DAILY ondansetron 4 mg tablet,disintegrating 4 mg PO Q6H PRN (Reason: nausea and vomiting) Qty: 15 0RF amoxicillin-pot clavulanate 875-125 mg tablet 1 tab PO BID 10 Days Qty: 20 0RF Referrals Referrals: Adi Osborne III, CRNP [Primary Care Provider] -
[2024-10-24] MEDS: SODIUM CHLORIDE 0.9% 1,000 ML IV ONE (12:52)
[2024-10-24] MEDS: ONDANSETRON INJ 2 MG/ML 2 ML VIAL IV STA (12:53)
[2024-10-24] MEDS: ACETAMINOPHEN 1,000 MG/100 ML VIAL IV STA (12:53)
[2024-10-24 13:10] LABS: Basophils # (auto) 0.04 K/uL (0.00-0.20); Basophils % (auto) 0.9 %; Eosinophils # (auto) 0.15 K/uL (0.00-0.50); Eosinophils % (auto) 3.2 %; Hematocrit (blood only) 38.7 % (42.0-52.0); Hemoglobin 13.6 g/dl (14.0-18.0); Immature Granulocytes # (auto) 0.03 K/uL (0.01-0.20); Immature Granulocytes % (auto) 0.6 %; Lymphocytes # (auto) 0.84 K/uL (1.20-3.40); Lymphocytes % (auto) 18.1 %; Mean Corpuscular Hemoglobin 31.7 pg (25.0-34.0); Mean Corpuscular Hgb Conc 35.1 g/dL (32.0-36.0); Mean Corpuscular Volume 90.2 fL (80.0-100.0); Mean Platelet Volume 12.9 fL (9.4-12.4); Monocytes % (auto) 15.1 %; Neutrophils # (auto) 2.88 K/uL (1.40-6.50); Neutrophils % (auto) 62.1 %; Platelet Count 145 K/uL (130-400); RDW Coefficient of Variation 11.8 % (11.5-14.5); RDW Standard Deviation 38.9 fL (36.4-46.3); Red Blood Count 4.29 M/uL (4.70-6.10); White Blood Count 4.64 K/ul (4.8-10.8)
[2024-10-24 13:12] LABS: Albumin Globulin Ratio 1.4 (0.9-2); Albumin Level 4.2 gm/dl (3.4-5.0); BUN Creatinine Ratio 30.1 (10-20); Bilirubin,Total 0.5 mg/dl (0.2-1.0); Calcium 9.5 mg/dl (8.6-10.3); Magnesium 1.7 mg/dl (1.7-2.4); Potassium 3.9 mmol/L (3.5-5.1); Total Protein 7.2 gm/dl (6.0-8.3)
[2024-10-24 13:17] LABS: Troponin I High Sensitivity 4.5 pg/ml (0-20)
--- NOTE | 2024-10-24 13:28 | XRay Report ---
XR chest 1V portable CLINICAL HISTORY: Dyspnea COMPARISON STUDY: 10/22/2024 FINDINGS: Heart size and pulmonary vasculature are normal. No effusion, consolidation, or pneumothora x. IMPRESSION: No acute findings. ACT 112: Negative or not required by law. Electronically signed by: Red Lo M.D. 10/24/2024 1:26 PM
[2024-10-24 13:30] LABS: Prothrombin Time 10.9 Seconds (9.0-12.0)
[2024-10-24] MEDS: methylPREDNISolone 125 MG/2 ML VIAL IV STA (13:36)
[2024-10-24] MEDS: diphenhydrAMINE 50 MG/ML VIAL IV STA (13:36)
[2024-10-24 14:06] LABS: Adenovirus PCR Not Detected (NotDetected); Bordetella parapertussis PCR Not Detected (NotDetected); Bordetella pertussis PCR Not Detected (NotDetected); Chlamydia pneumoniae PCR Not Detected (NotDetected); Coronavirus 229E PCR Not Detected (NotDetected); Coronavirus CoV-2 (COVID19)PCR DETECTED (NotDetected); Coronavirus HKU1 PCR Not Detected (NotDetected); Coronavirus NL63 PCR Not Detected (NotDetected); Coronavirus OC43PCR Not Detected (NotDetected); Human Metapneumovirus PCR Not Detected (NotDetected); Influenza A PCR Not Detected (NotDetected); Influenza B PCR Not Detected (NotDetected); Mycoplasma pneumoniae PCR Not Detected (NotDetected); Parainfluenza Virus 1 PCR Not Detected (NotDetected); Parainfluenza Virus 2 PCR Not Detected (NotDetected); Parainfluenza Virus 3 PCR Not Detected (NotDetected); Parainfluenza Virus 4 PCR Not Detected (NotDetected); Respiratory Syncytial VirusPCR Not Detected (NotDetected); Rhinovirus/Enterovirus PCR Not Detected (NotDetected)
[2024-10-24] MEDS: OPTIRAY 320 125ml IV ONE (14:41)
--- NOTE | 2024-10-24 14:58 | Electrocardiogram Report ---
Test Reason : Blood Pressure : */* mmHG Vent. Rate : 80 BPM Atrial Rate : 80 BPM P-R Int : 182 ms QRS Dur : 106 ms QT Int : 390 ms P-R-T Axes : 37 34 59 degrees QTcB Int : 449 ms Normal sinus rhythm with frequent Premature atrial complexes Nonspecific T wave abnormality Abnormal ECG When compared with ECG of 05-Jun-2017 11:56, Nonspecific T wave abnormality no longer evident in Anterior leads Confirmed by Leonardo Saldaña ([id number]) on 10/24/2024 2:57:19 PM Referred By: REFERRED SELF Confirmed By: Leonardo Saldaña
[2024-10-24 15:00] LABS: Appearance Urine Clear (Clear); Bacteria Urine Automated None Seen (None Seen); Bilirubin Urine Negative (Negative); Blood Urine Negative (Negative); Cast Urine Automated 0-2 /lpf (0-2); Color Urine Dark Yellow; Epithelial Cell Urine Auto 0-2 /hpf (0-2); Glucose Urine UA Negative (Negative); Ketones Urine Trace (Negative); Leukocyte Esterase Urine Negative (Negative); Nitrite Urine Negative (Negative); Protein Urine 1+ (Negative); RBC Urine Automated 0-2 /hpf (0-2); Specific Gravity Urine 1.035 (1.000-1.030); Urobilinogen Urine Negative (Negative); WBC Urine Automated 0-5 /hpf (0-5)
--- NOTE | 2024-10-24 15:00 | CT Scan Report ---
CT angio chest PE protocol CT DOSE: 914.05 mGy.cm HISTORY: PE. Near syncope TECHNIQUE: Multiple CTA images of the chest were obtained after the intravenous administration of 150 ml Optiray. Coronal and sagittal MIPS were obtained from the axial data set and were submitted for review. A dose lowering technique was utilized adhering to the principles of ALARA. COMPARISON STUDY: None FINDINGS: There is no evidence of pulmonary embolism. There is no infiltrate or pleural effusion. The re is bibasilar interstitial change with subpleural sparing which can be associated with NSIP. The se[place] ng dorm[place] otherwise clear. Is no pleural effusion. There is no adenopathy. There is no aortic aneurys m or pericardial effusion. There is moderate coronary artery calcification. The upper abdominal images are noncontributory. IMPRESSION: No evidence of pulmonary embolism ACT 112: Negative or not required by law. The above report was generated using voice recognition software. It may contain grammatical, syntax o r spelling errors. Electronically signed by: Taylor Mazariegos M.D. 10/24/2024 2:58 PM
--- NOTE | 2024-10-24 16:40 | History & Physical Report ---
Date of Service October 24, 2024 Assessment & Plan (1) COVID-19: Plan: Red is a 74-year-old male with a past medical history of hypothyroidism, type II DM, sensory ataxia, depression who presents with weakness fatigue and transient hypoxia and who is COVID-positive. Patient was hypoxic to 87% in the ER was recommended for admission both for weakness/dizziness and hypoxia. COVID Hypoxia to 87% in the ER. Titrate oxygen to goal 90% 10 days of dexamethasone started Reassessment of remdesivir discussed will defer due to onset of illness 7 to 10 days ago CTAchest without evidence of PE. No evidence of secondary bacterial pneumonia BioFire COVID-positive No evidence of concurrent volume overload Dizziness, suspect labyrinthitis Patient with dizziness and some lightheadedness. By history patient may have had an episode BPPV, but given COVID is most likely labyrinthitis No focal neurologic deficits Supportive care Fully steroids will help with this, if continues have symptoms then can add meclizine Type II DM Goal BSG [id number] Continue basal insulin 46 units twice daily Continue SSI DM diet Metformin held Patient is on weekly semaglutide Chronic stable issues: Hypothyroidism: Continue Synthroid GERD: Continue PPI Hypertension: Continue lisinopril DVT prophylaxis: Lovenox Disposition: MSO CODE STATUS: Full code Diet: DM2 (2) Lightheadedness: (3) Uncontrolled type 2 diabetes mellitus with neurologic complication, with long-term current use of insulin: (4) Hypothyroidism: (5) Diabetic peripheral neuropathy associated with type 2 diabetes mellitus: History of Present Illness Primary Care Provider: Adi Osborne, III, HOME SCHOOL COORDINATOR ~7 days of dry cough, sinus congestion No shortness of breath No chest pain +nausea. Mild vomiting. No hematemisis No diarrhea/constipation/melena No wheezing +fatigue Dx with COVID on Monday Came back to the ER due to dizziness. Has a spinning vertiginous quality when h e gets up and turns his head. No lightheadedness. Had this once before but was brief and self-limited. Some nausea when the room spins Medical History: Reviewed Medications: Reviewed Surgical History: Reviewed Family history: Reviewed Allergies: Reviewed Social History: No tobacco/ETOH Code Status: Full Allergies Allergy/AdvReac Type Severity Reaction Status Date / Time Iodinated Contrast Media Allergy Severe ANAPHYLAXIS Verified 08/26/24 10:22 iodine Allergy Severe ANAPHYLAXIS Verified 08/26/24 10:22 Home Medications Medication Instructions Recorded Confirmed Type Diabetic Shoes #1 ea 06/04/19 08/26/24 Rx aspirin 81 mg tablet 81 mg PO DAILY #90 tabs 07/05/19 10/24/24 History melatonin 10 mg tablet 10 mg PO HS PRN Sleep 09/05/19 10/24/24 History cholecalciferol (vitamin D3) 125 125 mcg PO DAILY 08/24/21 10/24/24 History mcg (5,000 unit) tablet (Vitamin D3) Walking Cane #1 ea 11/12/21 08/26/24 Rx loratadine 10 mg tablet 10 mg PO DAILY PRN allergy 05/10/23 10/24/24 Rx symptoms #30 tabs sildenafil 100 mg tablet 50 - 100 mg (0.5 - 1 x 100 mg) PO 09/12/23 10/24/24 Rx DAILY PRN sexual activity #8 tabs levothyroxine 50 mcg tablet 50 mcg PO QAM #90 tabs 12/13/23 10/24/24 Rx lisinopril 20 mg tablet 20 mg PO QAM #90 tabs 01/09/24 10/24/24 Rx Lantus Solostar U-100 Insulin 100 46 unit (0.46 mL) subcut BID #90 mL 01/10/24 10/24/24 Rx unit/mL (3 mL) subcutaneous pen (insulin glargine) blood-glucose meter (Accu-Chek #1 ea 01/22/24 08/26/24 Rx Guide Glucose Meter) BD Ultra-Fine Short Pen Needle 31 #500 ea 02/09/24 08/26/24 Rx gauge x 5/16" (pen needle, diabetic) blood sugar diagnostic (Accu-Chek #100 ea 03/26/24 08/26/24 Rx Guide test strips) buspirone 7.5 mg tablet 7.5 mg PO BID #180 tabs 04/08/24 10/24/24 Rx meloxicam 7.5 mg tablet 7.5 mg PO BID PRN pain #180 tabs 04/24/24 10/24/24 Rx omeprazole 20 mg capsule,delayed 20 mg PO DAILY #90 caps 05/28/24 10/24/24 Rx release rosuvastatin 40 mg tablet 40 mg PO QAM #90 tabs 05/28/24 10/24/24 Rx abaloparatide (Tymlos) 80 mcg (0.04 mL) subcut DAILY 05/29/24 10/24/24 Rx #1.56 mL insulin aspart U-100 100 unit/mL See Rx Instructions .Route 08/16/24 10/24/24 Rx (3 mL) subcutaneous pen (Novolog .COMPLEX #45 mL FlexPen U-100 Insulin aspart) pregabalin 200 mg capsule (Lyrica) 200 mg PO TID 30 days #90 caps 08/26/24 10/24/24 Rx semaglutide 1 mg/dose (4 mg/3 mL) 1 mg (0.75 mL) subcut .weekly #3 mL 08/26/24 10/24/24 Rx subcutaneous pen injector (Ozempic) amoxicillin 875 mg-potassium 1 tab PO BID 10 days #20 tabs 10/22/24 10/24/24 Rx clavulanate 125 mg tablet ondansetron 4 mg disintegrating 4 mg PO Q6H PRN nausea and 10/22/24 10/24/24 Rx tablet vomiting #15 tabs magnesium 250 mg PO DAILY 10/24/24 10/24/24 History metformin 500 mg tablet 1,000 mg PO BID 10/24/24 10/24/24 History Past Med/Surg History Problem List (Updated 10/24/24 @ 15:48 by Alexa Becerra MD) Near syncope (Acute) Nausea & vomiting (Acute) Lightheadedness (Acute) COVID-19 (Acute) Dehydration (Acute) Hypomagnesemia (Acute) Right maxillary sinusitis (Acute) COVID-19 (Acute) Nausea & vomiting (Acute) Abdominal pain (Acute) Headache (Acute) 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) Vitamin D deficiency (Chronic) Uncontrolled type 2 diabetes mellitus with neurologic complication, with long- term current use of insulin (Chronic) Stenosis, cervical spine (Chronic) Sensory ataxia (Chronic) Osteoarthritis of knee (Chronic) Obesity, morbid, BMI 40.0-49.9 (Chronic) Mitral valve disorder (Chronic) Hypothyroidism (Chronic) Benign essential hypertension (Chronic) Other and unspecified hyperlipidemia (Chronic) Heart disease, unspecified (Chronic) Chronic gastroesophageal reflux disease (Chronic) Diabetic peripheral neuropathy associated with type 2 diabetes mellitus (Chronic) Depressive disorder, not elsewhere classified (Chronic) Chronic reflux esophagitis (Chronic) Anxiety (Chronic) Allergic rhinitis (Chronic) History of back surgery Cervical spine arthritis Cervical radiculopathy Medical History (Updated 10/24/24 @ 15:48 by Alexa Becerra MD) Fracture of right distal radius Popliteal cyst Right arm pain History of pericarditis 12-14 YR AGO, HX ANGIOPLASTY...FOLLOWED DR DICK...NO LONGER FOLLOWS History of panic attacks Hyperlipidemia HTN (hypertension) Acid reflux Hypothyroid Diabetes Chronic constipation HX Basal cell carcinoma HX Deep vein thrombosis of proximal lower extremity S/P BACK SX 5 YR AGO Renal failure HX OF 5 YR AGO, D/T DEHYDRATION AND USE OF METFORMIN PRIOR TO SURGERY - NO ISSUES SINCE/MOST RECENT KIDNEY LAB WORK WNL PER PT Surgical History Epidermal cyst (10/04/22) In office 10/04/2022 Dr. Nguyen FINAL DIAGNOSIS Skin, right back (excision): - Epidermal cyst. History of angioplasty History of colonoscopy History of total right knee replacement History of carpal tunnel surgery RIGHT Hx of arthroscopy of knee RIGHT H/O spinal fusion (~01/20/14) Family History Father Black lung disease Diabetes Mother Cerebral arteriosclerosis Diabetes Goiter Other Stroke Denies family history of Ovarian cancer Prostate cancer Myocardial infarction Breast cancer Colorectal cancer Social History (Updated 08/08/24 @ 11:16 by PATRICIO Aguilera) Smoking Status: Never smoker packs per day: 0; Second Hand Exposure: No; Do You Dip or Chew Tobacco: No; Hx Alcohol Use: Yes Alcohol type: beer and wine Alcohol Intake Frequency: Monthly or Less Hx Substance Use: No Preferred Language: Omani Communication Ability: Effective Visual Impairment: Limited Hearing Ability: Normal Flooring Grader Required: No Beliefs That Will Affect Care: None marital status: Single Current Living Situation: Alone current occupational status: retired How many Children do You have: 0 Feels Safe at Home: Yes Childhood Exposure to Second-Hand Smoke: No Diet: diabetic caffeine: Yes during the past year weight has: decreased > 10 lbs Dental Care, Regularly: Yes Physical Activity Frequency: Daily Seatbelt Use: always Sunscreen Use: Yes Assistive Devices: Cane and Glasses Physical Exam Physical Exam: General: A&Ox3. NAD. Cooperative. HEENT: Atraumatic, normocephalic. Vision/hearing grossly intact Pulm: CTAB A&P. -wheezes, -rales, -rhonchi. Symmetrical chest rise. No increased work of breathing. No respiratory distress. Cardiac: RRR, -mrg. Radial pulses intact and symmetrical. Abdominal: Nontender, nondistended, soft. BS present. Ext: warm, dry Results & Data Results & Data Vital Signs (Past 12 Hours) Vital Signs Temp Pulse Pulse Resp BP BP Pulse Ox 10/24/24 16:00 81 20 156/78 H 97 10/24/24 14:21 72 13 100 10/24/24 14:18 73 20 165/83 H 100 10/24/24 14:12 68 16 99 10/24/24 14:07 165/83 H 10/24/24 14:06 68 12 10/24/24 14:03 67 12 10/24/24 13:51 75 15 10/24/24 13:31 170/75 H 10/24/24 13:31 170/75 H 10/24/24 13:30 71 19 98 10/24/24 13:21 66 96 10/24/24 13:12 61 16 94 10/24/24 13:06 62 18 93 10/24/24 13:00 160/94 H 10/24/24 13:00 160/94 H 10/24/24 12:54 72 14 97 10/24/24 12:47 72 96 10/24/24 12:45 78 18 97 10/24/24 12:39 73 19 95 10/24/24 12:33 72 10/24/24 12:24 76 13 97 10/24/24 12:19 87 L 10/24/24 12:14 36.5 C 66 20 177/89 H 87 L 10/24/24 12:08 77 20 177/89 H 93 O2 Del Method O2 Flow Rate 10/24/24 16:00 10/24/24 14:21 10/24/24 14:18 Room Air 10/24/24 14:12 10/24/24 14:07 10/24/24 14:06 10/24/24 14:03 10/24/24 13:51 10/24/24 13:31 10/24/24 13:31 10/24/24 13:30 10/24/24 13:21 10/24/24 13:12 10/24/24 13:06 10/24/24 13:00 10/24/24 13:00 10/24/24 12:54 10/24/24 12:47 Nasal Cannula 3 10/24/24 12:45 10/24/24 12:39 10/24/24 12:33 10/24/24 12:24 10/24/24 12:19 Nasal Cannula 10/24/24 12:14 Room Air 10/24/24 12:08 Room Air PG Care Time/CCT Total # of Minutes Spent Total Time Spent with Patient: Total time spent is greater than 50% in coordination of care (as documented) at patient's floor/unit and/or counseling patient: Coding Level of Care Code 31551 INT INP/OBS CARE 3/75MIN Diagnoses COVID-19 U07.1 Lightheadedness R42 Uncontrolled type 2 diabetes mellitus with neurologic complication, with long- term current use of insulin E11.49; E11.65; Z79.4 Acquired hypothyroidism E03.9 Hypothyroidism type: acquired Diabetic peripheral neuropathy associated with type 2 diabetes mellitus E11.42 (4) Hypothyroidism Hypothyroidism type: acquired Qualified Code(s): E03.9 - Hypothyroidism, unspecified
[2024-10-24] MEDS ORDERED: GLUCOSE 10 TAB/TUBE PO PRN (21:20)
[2024-10-24] MEDS ORDERED: LORATADINE 10 MG TAB PO PRN (21:20)
[2024-10-24] MEDS ORDERED: DEXTROSE 50% 50 ML SYRINGE IV PRN (21:20)
[2024-10-24] MEDS ORDERED: GLUCOSE 40% GEL 15 GM TUBE PO PRN (21:20)
[2024-10-24] MEDS ORDERED: CARBOHYDRATES FOR HYPOGLYCEMIA PO PRN (21:20)
[2024-10-24] MEDS ORDERED: PHARMACY GLYCEMIC MGMT CONSULT PRN (21:20)
[2024-10-24] MEDS ORDERED: GLUCAGON FOR INJ 1 MG VIAL SQ PRN (21:20)
[2024-10-24] MEDS ORDERED: ONDANSETRON 4 MG OD TAB PO PRN (21:20)
[2024-10-24] MEDS: INSULIN ASPART PER UNIT CHARGE SC SCH (22:36)
[2024-10-24] MEDS: LANTUS PER UNIT CHARGE SQ SCH (22:36)
[2024-10-24] MEDS: PREGABALIN 100 MG CAP PO SCH (22:37)
[2024-10-24] MEDS: ENOXAPARIN INJ 40 MG/0.4 ML SYR SQ SCH (22:37)
[2024-10-24] MEDS: busPIRone 7.5 MG TAB PO SCH (22:38)
[2024-10-25] MEDS: CALCIUM CARBONATE 500 MG CHEWABLE TAB PO PRN (00:35)
[2024-10-25] MEDS: BENZONATATE 100 MG CAPSULE PO PRN (00:52)
[2024-10-25] MEDS: MELATONIN 3 MG TAB PO PRN (00:59)
[2024-10-25] MEDS: LEVOTHYROXINE SODIUM 50 MCG TABLET PO SCH (05:39)
[2024-10-25 07:22] LABS: BUN Creatinine Ratio 24.4 (10-20); Calcium 9.5 mg/dl (8.6-10.3); Creatinine Clr Calc Pharmacy 124.7 ml/min; Potassium 4.5 mmol/L (3.5-5.1)
[2024-10-25 07:32] LABS: Basophils # (auto) 0.02 K/uL (0.00-0.20); Basophils % (auto) 0.3 %; Hematocrit (blood only) 39.4 % (42.0-52.0); Hemoglobin 13.5 g/dl (14.0-18.0); Immature Granulocytes # (auto) 0.03 K/uL (0.01-0.20); Immature Granulocytes % (auto) 0.4 %; Lymphocytes # (auto) 1.28 K/uL (1.20-3.40); Lymphocytes % (auto) 18.3 %; Mean Corpuscular Hgb Conc 34.3 g/dL (32.0-36.0); Mean Corpuscular Volume 90.4 fL (80.0-100.0); Mean Platelet Volume 12.7 fL (9.4-12.4); Monocytes # (auto) 1.04 K/uL (0.11-0.59); Monocytes % (auto) 14.8 %; Neutrophils # (auto) 4.64 K/uL (1.40-6.50); Neutrophils % (auto) 66.2 %; Platelet Count 177 K/uL (130-400); RDW Coefficient of Variation 11.9 % (11.5-14.5); RDW Standard Deviation 39.3 fL (36.4-46.3); Red Blood Count 4.36 M/uL (4.70-6.10); White Blood Count 7.01 K/ul (4.8-10.8)
[2024-10-25] MEDS ORDERED: DEXAMETHASONE SOD INJ 4 MG/ML VIAL IV SCH (09:00)
[2024-10-25] MEDS: PANTOprazole 40 MG TAB PO SCH (09:04)
[2024-10-25] MEDS: dexAMETHasone 6 MG in SYRINGE 0 ML IV SCH (09:04)
[2024-10-25] MEDS: ASPIRIN 81 MG ECTAB PO SCH (09:05)
[2024-10-25] MEDS: ROSUVASTATIN CALCIUM 20 MG TAB PO SCH (09:06)
[2024-10-25] MEDS: CHOLECALCIFEROL 125 MCG (5,000 UNITS) TAB PO SCH (09:06)
--- NOTE | 2024-10-25 13:55 | Hospitalist Progress Note ---
Date of Service October 25, 2024 Assessment & Plan (1) COVID-19: (2) Lightheadedness: (3) Right maxillary sinusitis: (4) Uncontrolled type 2 diabetes mellitus with neurologic complication, with long-term current use of insulin: Misael Moon is a 74-year-old male with a past medical history of hypothyroidism, type II DM, sensory ataxia, depression who presented with weakness, fatigue, and transient hypoxia and who is COVID-positive. He initially presented to the ED on 10/23/2024 where he was found to have COVID and right sided maxillary sinusitis, was started on Augmentin BID x 10 days at that time. Mr. Alicia developed nausea with vomiting and dizziness/presyncope at home and return to the ED. Patient was hypoxic to 87% in the ER was recommended for admission both for weakness/dizziness and hypoxia. #COVID Hypoxia to 87% in the ER, was placed on supplemental O2 which has since been weaned down this morning. Currently stable on room air Continue dexamethasone 6 mg IV daily. Recommend 10-day steroid course Remdesivir deferred due to onset of illness 7 to 10 days ago CTAchest without evidence of PE. No evidence of secondary bacterial pneumonia PT OT recommended return home #Dizziness, suspect labyrinthitis Patient with dizziness and some lightheadedness. By history patient may have had an episode BPPV, but given COVID is most likely labyrinthitis Now resolved #Sinusitis Was started on Augmentin twice daily x 10 days on 10/22/2024 by ED for right sided maxillary sinusitis Will continue through 10/31/2024 #Type II DM Goal BSG [id number] Continue basal insulin with SSI A1c pending Pharmacy managing in setting of IV steroids #Chronic stable issues: Hypothyroidism: Continue Synthroid GERD: Continue PPI Hypertension: Continue lisinopril DVT prophylaxis: Lovenox CODE STATUS: Full code Dispo: Anticipate discharge home 10/26/2024 Admission and Anticipated Discharge Date Admission Date: October 24, 2024 Supervising Physician Co-Signing Physician Notes Attending Attestation - Chart reviewed, care plan d/w STAR Leal. I agree w/ the regan components of her documentation. Abnormal chest CTA - NSIP? Consider pulm referral after d/c. Masoud Capone MD Subjective Patient seen and evaluated bedside. He reports feeling better today than yesterday. He states his appetite has returned and he is well tolerating his d iet. He denies any further dizziness/lightheadedness/room spinning sensation. He reports his dry cough is his biggest problem at this time. Denies any mucus production. He has been weaned off supplemental O2 this morning and remains stable on room air at this time. He states he worked with PT/OT earlier and did well. Will continue to monitor overnight for further IV steroids and monitoring on room air. Anticipate discharge home 10/26/2024. Physical Exam Physical Exam: General: No acute distress, nondiaphoretic, well-developed, class III obesity. Cardiac: Regular rate and rhythm without murmurs gallops or rubs. Pulm: Clear to auscultation bilaterally without wheezes, rales or rhonchi. No respiratory distress. 95% on room air. Abdominal: Soft, nontender, distention secondary to body habitus. Bowel sounds present. Neuro: A&O x3. No focal neurological deficits. Results & Data Results & Data Vital Signs (Past 12 Hours) Vital Signs Temp Pulse Resp BP Pulse Ox Pulse Ox Pulse Ox 10/25/24 13:38 98.4 F 88 18 178/90 H 95 10/25/24 10:52 97 95 10/25/24 08:05 98.1 F 77 19 160/71 H 94 10/25/24 07:35 O2 Del Method O2 Flow Rate O2 Flow Rate 10/25/24 13:38 Room Air 10/25/24 10:52 0 0 10/25/24 08:05 Room Air 10/25/24 07:35 Room Air Laboratory Results Reviewed CBC Reviewed BMP Diagnostic Findings Reviewed CXR Reviewed chest CTA PG Care Time/CCT Total # of Minutes Spent Total Time Spent with Patient: Total time spent is greater than 50% in coordination of care (as documented) at patient's floor/unit and/or counseling patient: Coding Level of Care Code 89326 SUB INP/OBS CARE 3/50MIN Diagnoses COVID-19 U07.1 Lightheadedness R42 Right maxillary sinusitis J32.0 Uncontrolled type 2 diabetes mellitus with neurologic complication, with long- term current use of insulin E11.49; E11.65; Z79.4
[2024-10-25] MEDS: AMOXICILLIN/CLAVULANATE 875 MG TAB PO SCH (18:00)
[2024-10-25] MEDS: COUGH DROP (SUGAR FREE) LOZ 24 LOZ/1 BOX BUCCAL ONE (18:04)
--- NOTE | 2024-10-25 21:18 | Pharmacy Report ---
Pharmacy Glycemic Short Note 2 - Date of Service October 25, 2024 - Glycemic Short BSG Results (Last 24 hours): 10/25/24 10/25/24 10/25/24 05:40 08:02 11:48 Glucose 229 H POC Glucose 139 H 175 H 10/25/24 10/25/24 10/25/24 16:48 16:51 20:49 Glucose POC Glucose 321 H* 336 H* 325 H* 10/25/24 10/25/24 20:52 20:53 Glucose POC Glucose 352 H* 315 H* OUTPATIENT ANTIDIABETIC REGIMEN: * Lantus 46 units SQ BID * Aspart TID with meals (max 115 units per day) * Ozempic 1 mg SC weekly * A1c = pending ASSESSMENT: * Red is a 74 yo T2DM admitted with [facility]. Patient is ordered dexamethasone IV daily. Anticipate steroid induced hyperglycemia. * A1c pending. Patient takes a significant amount of insulin as an outpatient, 90 units of basal + up to 115 units of short acting insulin per day. * Fasting BSG near goal this AM on home dose of Lantus. Lunch BSG also acceptable. Severe hyperglycemia noted with dinner and HS. Further tighten Novolog parameters and add overnight checks. Lantus dose increased by Hospitalist. PLAN FOR INPATIENT GLYCEMIC CONTROL: * Hold outpatient oral diabetes medications * Basal insulin * Lantus 50 units SQ BID * Bolus insulin * NovoLog per scale ACHS or Q6hrs while NPO * Goal Range: Low 110 mg/dL - High 140 mg/dL * Correction Factor: 12 mg/dL/unit * Nutritional / Prandial insulin per carb ratio of 1 unit per 4 grams CHO consumed
[2024-10-25] MEDS: LANTUS PER UNIT CHARGE SQ SCH (21:30)
[2024-10-26] MEDS: INSULIN ASPART PER UNIT CHARGE SC SCH (00:39)
[2024-10-26 06:20] LABS: Basophils # (auto) 0.02 K/uL (0.00-0.20); Basophils % (auto) 0.3 %; Eosinophils # (auto) 0.01 K/uL (0.00-0.50); Eosinophils % (auto) 0.2 %; Hematocrit (blood only) 38.5 % (42.0-52.0); Hemoglobin 13.4 g/dl (14.0-18.0); Immature Granulocytes # (auto) 0.04 K/uL (0.01-0.20); Immature Granulocytes % (auto) 0.7 %; Lymphocytes # (auto) 1.69 K/uL (1.20-3.40); Lymphocytes % (auto) 28.5 %; Mean Corpuscular Hemoglobin 31.2 pg (25.0-34.0); Mean Corpuscular Hgb Conc 34.8 g/dL (32.0-36.0); Mean Corpuscular Volume 89.5 fL (80.0-100.0); Mean Platelet Volume 12.3 fL (9.4-12.4); Monocytes # (auto) 0.92 K/uL (0.11-0.59); Monocytes % (auto) 15.5 %; Neutrophils # (auto) 3.24 K/uL (1.40-6.50); Neutrophils % (auto) 54.8 %; Platelet Count 168 K/uL (130-400); RDW Coefficient of Variation 11.9 % (11.5-14.5); White Blood Count 5.92 K/ul (4.8-10.8)
[2024-10-26 06:36] LABS: Calcium 9.3 mg/dl (8.6-10.3); Creatinine Clr Calc Pharmacy 129.6 ml/min; Potassium 3.9 mmol/L (3.5-5.1)
[2024-10-26 07:46] VITALS: BP 133/72; PULSE 66; RESP 18; TEMP 97.9; O2SAT 95
--- NOTE | 2024-10-26 15:04 | Discharge Summary ---
Discharge Summary Date of Service October 26, 2024 Principal Dx & Hospital Course #1 = Principal Diagnosis (1) COVID-19: (2) Lightheadedness: (3) Right maxillary sinusitis: (4) Uncontrolled type 2 diabetes mellitus with neurologic complication, with long-term current use of insulin: Misael Moon is a 74-year-old male with a past medical history of hypothyroidism, type II DM, sensory ataxia, depression who presented with weakness, fatigue, and transient hypoxia and who is COVID-positive. He initially presented to the ED on 10/23/2024 where he was found to have COVID and right sided maxillary sinusitis, was started on Augmentin BID x 10 days at that time. Mr. Alicia developed nausea with vomiting and dizziness/presyncope at home and return to the ED. Patient was hypoxic to 87% in the ER was recommended for admission both for weakness/dizziness and hypoxia. Remdesivir deferred due to onset of illness 7 to 10 days ago. #COVID Hypoxia to 87% in the ER, was placed on supplemental O2 which has since been weaned down and has remained stable on room air Treated with IV dexamethasone 6 mg x 3 days inpatient, discharged with dexamethasone 6 mg PO daily x 7 days for total of 10 day steroid course CTAchest without evidence of PE. No evidence of secondary bacterial pneumonia PT OT recommended return home #Dizziness, suspect labyrinthitis Patient with dizziness and some lightheadedness. By history patient may have had an episode BPPV, but given COVID is most likely labyrinthitis Now resolved; if returns outpatient, consider meclizine 12.5 mg TID #Sinusitis Was started on Augmentin twice daily x 10 days on 10/22/2024 by ED for right sided maxillary sinusitis Continue through 10/31/2024 #Type II DM Goal BSG [id number] Continue basal insulin with SSI A1c pending; machine down during hospitalization. Will defer follow-up results to PCP Pharmacy managing in setting of IV steroids #Chronic stable issues: Hypothyroidism: Continue Synthroid GERD: Continue PPI Hypertension: Continue lisinopril DVT prophylaxis: Lovenox CODE STATUS: Full code Dispo: Discharged home 10/26/2024 Notes For Next Care Provider Follow-up on A1c results Admission HPI Per Admitting Provider ~7 days of dry cough, sinus congestion No shortness of breath No chest pain +nausea. Mild vomiting. No hematemisis No diarrhea/constipation/melena No wheezing +fatigue Dx with COVID on Monday Came back to the ER due to dizziness. Has a spinning vertiginous quality when he gets up and turns his head. No lightheadedness. Had this once before but was brief and self-limited. Some nausea when the room spins Medical History: Reviewed Medications: Reviewed Surgical History: Reviewed Family history: Reviewed Allergies: Reviewed Social History: No tobacco/ETOH Code Status: Full Discharge Exam General: No acute distress, nondiaphoretic, well-developed, class III obesity. Cardiac: Regular rate and rhythm without murmurs gallops or rubs. Pulm: Clear to auscultation bilaterally without wheezes, rales or rhonchi. No respiratory distress. 95% on room air. Abdominal: Soft, nontender, distention secondary to body habitus. Bowel sounds present. Neuro: A&O x3. No focal neurological deficits. Discharge Plan Discharge Items Patient Disposition: Home - Self-Care Reason For Visit: COVID, HYPOXIA Discharge Diagnosis: COVID Hypoxianow resolved Activity: Resume your previous activity Non-emergency contact: Primary Care Provider Call non-emergency contact if: you have any medication questions and your symptoms worsen Follow-up/Referrals: Adi Osborne III, CRNP [Primary Care Provider] - (Follow-up in 1 to 2 weeks) Diet: Carb Consistent or DM2 Addtl Attending Provider Instructions: Mr. Alicia, You were admitted to the hospital due to hypoxia (low oxygen levels). You tested positive for COVID, which is likely the cause of your hypoxia, as well as the nausea, vomiting, weakness, fatigue, and dizziness you experienced at home. You were weaned off supplemental oxygen and have been stable on room air. You were continued on your oral antibiotic for your right sided maxillary sinusitis infection that the ER started on 10/22/2024. Upon discharge from the hospital: * Take Decadron 6 mg daily x 7 more days. This is an oral steroid to reduce inflammation from COVID. * Continue Augmentin twice daily through 10/31/2024. This is to treat your right sided maxillary sinusitis. * You can take Tessalon Perles 1 capsule every 8 hours as needed for cough. * Continue your other home medications as prescribed. * Follow-up with your PCP in 1-2 weeks. Please return to the hospital if you experience any of the following: Shortness of breath, difficulty breathing, chest pain, lightheadedness, dizziness, passing out, confusion, or any other symptoms concerning for you. It was a pleasure taking care of you while you were in the hospital! Pending Studies at Discharge: No Stand-Alone Forms: My [facility], Smoking Cessation Medications and DC Order Prescriptions: New benzonatate 100 mg Capsule 100 mg PO TID PRN (Reason: cough) Qty: 15 0RF dexamethasone 6 mg tablet 6 mg PO DAILY Qty: 7 0RF Continued (DME) Diabetic Shoes Mis See Dose Instructions .ROUTE .MEDSUPPLY Qty: 1 0RF Dose Instruction: As directed Rx Instructions: As directed. 1 pair. Length of Need: 99 (DME) Walking Cane [facility] [place] See Rx Instructions .Route Qty: 1 0RF Rx Instructions: As directed sildenafil 100 mg tablet 50 - 100 mg PO DAILY PRN (Reason: sexual activity) Qty: 8 5RF Rx Instructions: Take 1/2 to 1 tablet 1 hour before intercourse levothyroxine 50 mcg tablet 50 mcg PO QAM Qty: 90 3RF lisinopril 20 mg tablet 20 mg PO QAM Qty: 90 3RF insulin glargine [Lantus Solostar U-100 Insulin] 100 unit/mL (3 mL) insulin pen 46 unit SQ BID Qty: 90 3RF (DME) blood-glucose meter [Accu-Chek Guide Glucose Meter] [facility] [place] See Rx Instructions .Route Qty: 1 0RF Rx Instructions: Use 3 times a day and as needed (DME) pen needle, diabetic [BD Ultra-Fine Short Pen Needle] 31 gauge x 5/16" n eedle See Rx Instructions .ROUTE .COMPLEX Qty: 500 3RF Dose Instruction: TEST BLOOD SUGAR 5 TIMES A DAY Rx Instructions: TEST BLOOD SUGAR 5 TIMES A DAY (DME) Accu-Chek Guide test strips Strip See Rx Instructions .Route Qty: 100 5RF Rx Instructions: Use 3 times daily and as needed buspirone 7.5 mg tablet 7.5 mg PO BID Qty: 180 3RF meloxicam 7.5 mg tablet 7.5 mg PO BID PRN (Reason: pain) Qty: 180 3RF rosuvastatin 40 mg tablet 40 mg PO QAM Qty: 90 3RF omeprazole 20 mg capsule,delayed release(DR/EC) 20 mg PO DAILY Qty: 90 3RF insulin aspart U-100 [Novolog FlexPen U-100 Insulin] 100 unit/mL (3 mL) insulin pen See Rx Instructions .ROUTE .COMPLEX Qty: 45 1RF Dose Instruction: INJECT 1 SLIDING SCALE DOSE SUBCUTANEOUSLY (UNDER THE SKIN) THREE TIMES DAILY WITH MEALS. MAXIMUM DAILY DOSE: 115 UNITS VIA SLIDING SCALE Rx Instructions: INJECT 1 SLIDING SCALE DOSE SUBCUTANEOUSLY (UNDER THE SKIN) THREE TIMES DAILY WITH MEALS. MAXIMUM DAILY DOSE: 115 UNITS VIA SLIDING SCALE Ozempic 1 mg/dose (4 mg/3 mL) pen injector 1 mg subcut .weekly Qty: 3 5RF Rx Instructions: Monday pregabalin [Lyrica] 200 mg capsule 200 mg PO TID 30 Days Qty: 90 2RF aspirin 81 mg tablet 81 mg PO DAILY Qty: 90 melatonin 10 mg tablet 10 mg PO HS PRN (Reason: Sleep) loratadine 10 mg tablet 10 mg PO DAILY PRN (Reason: allergy symptoms) Qty: 30 0RF Tymlos 80 mcg (3,120 mcg/1.56 mL) pen injector 80 mcg subcut DAILY Qty: 1.56 2RF Rx Instructions: inject into abdomen; do not inject within 2 inches of belly button/navel; rotate sites cholecalciferol (vitamin D3) [Vitamin D3] 125 mcg (5,000 unit) Tablet 125 mcg PO DAILY ondansetron 4 mg tablet,disintegrating 4 mg PO Q6H PRN (Reason: nausea and vomiting) Qty: 15 0RF amoxicillin-pot clavulanate 875-125 mg tablet 1 tab PO BID 10 Days Qty: 20 0RF magnesium 250 mg PO DAILY metformin 500 mg tablet 1,000 mg PO BID Rx Instructions: TAKE 2 TABLETS BY MOUTH TWO TIMES DAILY Discharge Orders: Discharge Order (Routine); Ordered 10/26/24 Ordered By: Carmelita Heck/Other Patient Handouts: COVID-19 Home Care Admission Data Admit Date/Time: 10/24/24 16:48 Attending Provider: Masoud Capone Admit Provider: Jorge Correa Primary Care Provider: Adi Osborne III Other Providers: Jorge Correa Other Interventions: Discharge Summary Assessment (RN) Last Done: 10/26/24 12:11 Hospital Stay Data Consultations 10/24/24 15:42 ED Decision to Admit Stat Diagnostic Imagining Performed 10/24/24 13:31 CT for pulmonary embolism PE [CT angio chest PE protocol] Stat Pending Results Patient Have Any Pending Studies at Discharge: No Discharge Instructions Given to Patient (Per Discharging Provider) Mr. Alicia, You were admitted to the hospital due to hypoxia (low oxygen levels). You tested positive for COVID, which is likely the cause of your hypoxia, as well as the nausea, vomiting, weakness, fatigue, and dizziness you experienced at home. You were weaned off supplemental oxygen and have been stable on room air. You were continued on your oral antibiotic for your right sided maxillary sinusitis infection that the ER started on 10/22/2024. Upon discharge from the hospital: * Take Decadron 6 mg daily x 7 more days. This is an oral steroid to reduce inflammation from COVID. * Continue Augmentin twice daily through 10/31/2024. This is to treat your right sided maxillary sinusitis. * You can take Tessalon Perles 1 capsule every 8 hours as needed for cough. * Continue your other home medications as prescribed. * Follow-up with your PCP in 1-2 weeks. Please return to the hospital if you experience any of the following: Shortness of breath, difficulty breathing, chest pain, lightheadedness, dizziness, passing out, confusion, or any other symptoms concerning for you. It was a pleasure taking care of you while you were in the hospital! Supervising Physician Co-Signing Physician Notes Attending Attestation and Discharge Note: Chart reviewed, discharge care plan d/w STAR Leal. I agree w/ the regan components of her discharge documentation. 74yo male with hypothyroidism, type II DM, sensory ataxia, depression who prese nted with weakness, fatigue, and transient hypoxia and who is COVID-positive. Initially tested + for COVID on 10/22/2024 during an ER visit. During the same visit dx with right sided maxillary sinusitis via head CT & Augmentin BID x 10 days was prescribed. He was discharged home following this ER visit. Mr. Alicia developed nausea with vomiting and dizziness/presyncope at home and return to the ED on 10/24/24 He was subsequently admitted. Upon admission Remdesivir was deferred due to onset of illness 7+ days ago. During the stay was continued on augmentin for his sinusitis, given dexa methasone for his COVID-19 as well as suspected labrynthitis, and given other supportive care. He only required NC O2 on 10/24/24. He remained stable in room air for the remainder of his stay. Of note - CTA chest during this admission showed no PE or pneumonia. However, there were interstitial changes present - possibly NSIP?? Advise pulm referral post-d/c for additional work-up. He will complete his augmentin for the sinusitis and continue on a course of dexamethasone for his COVID-induced labrynthitis. Masoud Capone MD Total Time Total Time Spent Total Time Spent (In Minutes): Greater than 30 minutes spent completing this discharge process including direct patient care, medication reconciliation, documentation, review of labs and images, and coordination of care. Coding Level of Care Code 00894 INP/OBS DISCH >30 MIN Diagnoses COVID-19 U07.1 Lightheadedness R42 Right maxillary sinusitis J32.0 Uncontrolled type 2 diabetes mellitus with neurologic complication, with long-term current use of insulin E11.49; E11.65; Z79.4
[2024-10-29 11:36] LABS: Estimated Average Glucose 209 mg/dl; Hemoglobin A1C 8.9 % (4.5-5.6)
== END 2024-10-26 12:35 | disposition home or self-care (01) | DRG 178 ==
LOC: ED 12:04 → 3E 16:48 → SUATTDRO 16:48 → 3E 20:11
DX: E11.42 Type 2 diabetes mellitus with diabetic polyneuropathy; R09.02 Hypoxemia; E11.65 Type 2 diabetes mellitus with hyperglycemia; I05.9 Rheumatic mitral valve disease, unspecified; U07.1 COVID-19; Z79.82 Long term (current) use of aspirin; Z79.899 Other long term (current) drug therapy; E03.9 Hypothyroidism, unspecified; Z68.41 Body mass index [BMI] 40.0-44.9, adult; I11.0 Hypertensive heart disease with heart failure; J32.0 Chronic maxillary sinusitis; J01.00 Acute maxillary sinusitis, unspecified; E11.49 Type 2 diabetes mellitus with other diabetic neurological complication; Z91.041 Radiographic dye allergy status; Z79.85 Long-term (current) use of injectable non-insulin antidiabetic drugs; E83.42 Hypomagnesemia; Z79.84 Long term (current) use of oral hypoglycemic drugs; Z79.83 Long term (current) use of bisphosphonates; Z87.891 Personal history of nicotine dependence; E66.813 Obesity, class 3; Z79.1 Long term (current) use of non-steroidal anti-inflammatories (NSAID); Z79.4 Long term (current) use of insulin; Z79.890 Hormone replacement therapy; Z98.1 Arthrodesis status; D64.9 Anemia, unspecified; I50.9 Heart failure, unspecified; H83.09 Labyrinthitis, unspecified ear; Z88.3 Allergy status to other anti-infective agents; E78.5 Hyperlipidemia, unspecified